=== PATIENT | female | born 1945 | race African-American/Black ===

== ENCOUNTER 2019-08-12 21:02 | Inpatient (IN) | payer MEDICARE, SELFPAY ==
--- NOTE | 2019-08-12 22:01 | RAD ---
Left femur 2 views HISTORY: Fall. Injury. FINDINGS: Comminuted predominantly oblique fracture involving the inferior margin of the lesser troch anter. Fall shaft width posterior displacement of the shaft in relation to the femoral neck. Small ossific fragment medial to the major fracture plane. Mild degenerative changes of the hip. IMPRESSION: Displaced subtrochanteric fracture left hip.
--- NOTE | 2019-08-12 22:01 | RAD ---
AP pelvis one view HISTORY: Fall. Injury. FINDINGS: Medial displacement of the subtrochanteric fracture of the left hip is apparent. There are mild degenerative changes of the hips and sacroiliac joints. Sacral alae and pelvic rings a re intact. IMPRESSION: Subtrochanteric fracture left hip.
--- NOTE | 2019-08-12 22:55 | RAD ---
Chest one view HISTORY: Preop. Hip fracture. FINDINGS: No comparison available. Cardiac silhouette is magnified by projection. Pulmonary vasculatu re is upper limits of normal. Mediastinum is midline. Mixed density predominantly lytic process of the right humeral head. The cortex favored to be intact. No other osseous lesions evident. IMPRESSION: Abnormality of the right humeral head could represent an aggressive process. Prior exams not available for direct comparison. If no prior studies are available to evaluate for stability, further imaging evaluation could be perf ormed with radionucleotide bone scan or MRI of the shoulder.
[2019-08-12 23:10] LABS: #Basophils 0.1 thou/uL (0.0-0.2); #Lymphocytes 3.8 thou/uL (1.20-3.40); #Monocytes 0.4 thou/uL (0.11-0.59); #Neutrophils 5.9 thou/uL (1.40-6.50); %Eosinophils 0.1 % (0.0-10.0); %Lymphocytes 37.5 % (21.0-51.0); %Monocytes 3.4 % (0.0-10.0); Hemoglobin 8.7 g/dL (12.0-16.0); Mean Corpuscular HGB CONC 32.9 g/dL (32.0-36.0); Mean Corpuscular Hemoglobin 23.6 pg (27.0-31.0); Mean Corpuscular Volume 71.8 fL (78.0-98.0); Mean Platelet Volume 9.7 fL (7.4-10.4); Platelet Count 145 thou/uL (130-400); RBC Distribution Width 13.3 % (11.5-14.5); Red Blood Cell (RBC) Count 3.68 mill/uL (4.20-5.40); White Blood Cell (WBC) Count 10.2 thou/uL (4.8-10.8)
[2019-08-12 23:32] LABS: ALT (SGPT) 13 U/L (8-55); AST (SGOT) 22 U/L (5-34); Albumin 3.6 g/dL (3.4-4.8); Alkaline Phosphatase 117 U/L (40-110); Anion Gap 11 mmol/L (10-20); BUN (Urea Nitrogen) 11 mg/dL (9.8-20.1); Bilirubin, Total 0.5 mg/dL (0.2-1.2); Calc. Creatinine Clearance 0 mL/min (70-130); Calcium 8.4 mg/dL (7.8-10.44); Carbon Dioxide 25 mmol/L (23-31); Chloride 107 mmol/L (98-107); Estimated GFR-MDRD 84; Globulin 2.2 g/dL (2.4-3.5); Glucose 260 mg/dL (83-110); Potassium 3.4 mmol/L (3.5-5.1); Protein, Total 5.8 g/dL (6.0-8.3); Sodium 140 mmol/L (136-145)
[2019-08-12 23:55] LABS: CKMB 7.4 ng/mL (0-6.6)
[2019-08-13] MEDS ORDERED: Ondansetron PF 4 MG/2 ML Vial IVP PRN (00:26)
[2019-08-13] MEDS ORDERED: Dextrose 50% Abboject 50 ML SYRINGE SLOW IVP PRN (00:26)
[2019-08-13] MEDS ORDERED: Dextrose 5% in Water 1,000 ML IV PRN (00:26)
[2019-08-13] MEDS ORDERED: Ondansetron ODT 4 MG TAB PO PRN (00:26)
[2019-08-13] MEDS ORDERED: Potassium Phosphate 30 MMOL in Sodium Chloride 0.9% 500 ML IVPB SCH (01:00)
[2019-08-13] MEDS ORDERED: hydrALAZINE 20 MG/ML VIAL ONE ×2 (01:07→16:04)
[2019-08-13 01:11] LABS: INR-International Normal Ratio 1.1; PTT 29.3 SEC (22.9-36.1); Prothrombin Time 14.1 SEC (12.0-14.7)
[2019-08-13] MEDS: Sodium Chloride 0.9% 1,000 ML IV SCH ×3 (01:56→16:43)
[2019-08-13 02:26] LABS: Hemoglobin A1c 7.7 % (4.0-6.0)
[2019-08-13 02:31] VITALS: BMI 34.2
[2019-08-13 02:52] LABS: Bacteria/HPF None Seen HPF (None Seen); Bilirubin Negative (Negative); Blood, Urine Negative (Negative); Clarity Clear (Clear); Glucose, Urine (Dipstick) 300 mg/dL (Negative); Leukocyte Negative Leu/uL (Negative); Nitrite Negative (Negative); Protein, Urine (Dipstick) Negative (Neg-Trace); RBC/HPF 0-3 HPF (0-3); Squamous Epithelial 0-3 HPF (0-3); Urobilinogen Normal mg/dL (Less than 2); WBC/HPF 0-3 HPF (0-3)
--- NOTE | 2019-08-13 03:14 | HP ---
This is Tatum Parra NP dictating a report for Abdulkadir Menjivar MD. REQUESTING PHYSICIAN: Dr. Hernandes. CONSULTS: Orthopedic Surgery, Dr. Melendez. HISTORY OF PRESENT ILLNESS: This is a 74-year-old female, who presented to the emergency room by EMS after the patient reports that her leg suddenly buckled and was unable to ambulate. The patient states that she was walking up one step to her garage when this suddenly happened. The patient denies hitting the floor and states she was able to grab on to something in the garage, so she did not fall. The patient denies any actual pain, but states that her left thigh felt stiff. The patient also reports having some left knee pain in June. The patient denies any medical or surgical history. The patient does not have a primary care physician and states that she rarely seeks medical care. The patient also reports injuring her right chest two months ago when she was cutting tree limbs down. The patient states that the tree limb punctured her right upper chest and the wound became larger. The patient did not seek medical care and states that she has been treating it on her own with peroxide and Betadine twice a day. The patient does report occasional foul smelling odor from the large right-sided chest and breast open wound. The patient denies any recent fever or chills. She denies any chest pain, shortness of breath or dizziness. The patient states multiple times she does not have time to be sick as she has to care for her 13-year-old grandson. The patient initially did not report this injury or wound, it was found by the nursing staff as they were obtaining her EKG. She also reports 2 months ago she started having right knee pain and has been taking ibuprofen. PAST MEDICAL HISTORY: Seasonal allergies. Heart murmur since . ALLERGIES: NO KNOWN DRUG ALLERGIES. PAST SURGICAL HISTORY: Partial hysterectomy. FAMILY HISTORY: Mom of lung cancer at the age of 59 and father of myocardial infarction at the age of 56. SOCIAL HISTORY: The patient denies tobacco use. The patient reports very occasional alcohol use. Denies any illicit drug use. MEDICATIONS: Ibuprofen. REVIEW OF SYSTEMS: A 10-point review of systems is negative unless otherwise indicated in the above HPI. OBJECTIVE: VITAL SIGNS: Pulse 88, blood pressure 165/55, respirations 20, temperature 98.5, SpO2 of 99% on room air. GENERAL: Elderly female, awake, alert, in no distress, nontoxic appearing, afebrile. Oriented to person, place, and time. HEENT: Head is atraumatic and normocephalic. Pupils are equal bilateral. Extraocular muscles intact. Mucous membranes are moist. NECK: Normal range of motion. No cervical spine tenderness. Trachea is midline. CHEST: Good inspiratory and expiratory effort. Bilateral breath sounds clear. No wheezing, rales, or rhonchi. There is an approximately 15 cm deep necrotic wound to the right upper chest and lateral right breasts that extends to the right top of the nipple and axilla with muscle involvement. Mildly foul smelling odor. CARDIAC: Regular rate, regular rhythm, 3/6 systolic murmur. No pedal edema. ABDOMEN: Soft, nontender, and nondistended. EXTREMITIES: Mild tenderness with palpation to the left hip. Distal pulses 2+ in all extremities. Movement and sensation intact in all extremities. NEUROLOGIC: No focal deficits. GCS 15. LABORATORY DATA: WBC 10.2, RBC 3.68, hemoglobin 8.7, hematocrit 26.5, platelets 145. PT 14.1, INR 1.1, APTT 29.3. Sodium 140, potassium 3.4, chloride 107, carbon dioxide 25, anion gap 11, BUN 11, creatinine 0.81, estimated GFR 84, glucose 260 , calcium 8.4, phosphorus 3.0, magnesium 2.0, AST 22, ALT 13, alkaline phos elevated at 117. CK elevated at 512, CK-MB elevated 7.4, troponin I indeterminate at 0.034. C-reactive protein elevated at 1.78. BNP 90. Serum total protein 5.8, albumin 3.6. Urinalysis pending. DIAGNOSTIC DATA: 1. Left femur x-ray, impression, displaced subtrochanteric fracture, left hip. 2. Pelvis x-ray, impression, subtrochanteric fracture, left hip. 3. Chest x-ray, impression, mixed density predominantly lytic process of the right femoral head. This could represent aggressive process. Cardiac silhouette is magnified by projection. Pulmonary vascular is upper limits of normal. Mediastinum is midline. 4. A 12-lead EKG, impression, right bundle branch block with a left axis deviation. No ST-segment or T-wave abnormalities. IMPRESSION: 1. Left subtrochanteric displaced hip fracture, likely pathologic. 2. Right large breast necrotic deep wound, suspected inflammatory breast cancer 3. Right hip femoral head lytic process. 4. Increased alkaline phosphate concerning for metastatic cancer. 5. Hypokalemia. 6. Elevated CK-MB and CPK likely due to right breast wound and muscle damage. 7. Indeterminate troponin likely due to uncontrolled hypertension. 8. Hyperglycemia. 9. Anemia likely due to chronic illness. 9. History of seasonal allergies and heart murmur since . PLAN: We will admit the patient to the surgical floor. The patient will be n.p.o. after midnight for possible surgery for repair of her left hip fracture by Dr. Melendez. The patient will be placed on maintenance IV fluids, normal saline at 120 mL an hour. Replace electrolytes. We will trend CK-MB and troponin levels. Repeat lab work in the morning. Trend Troponin. Wound Care consult to evaluate the right large chest wound. We will also obtain a culture of the wound. We will place the patient on a mild insulin sliding scale. We will likely consult Oncology and Palliative Care. We will place PT and OT consult. The plan will be discussed with the attending after this dictation. Job ID: [id number] MTDD
[2019-08-13 05:00] LABS: Hemoglobin 8.3 g/dL (12.0-16.0); Mean Corpuscular HGB CONC 32.9 g/dL (32.0-36.0); Mean Corpuscular Hemoglobin 23.8 pg (27.0-31.0); Mean Corpuscular Volume 72.3 fL (78.0-98.0); Mean Platelet Volume 9.7 fL (7.4-10.4); Platelet Count 148 thou/uL (130-400); RBC Distribution Width 13.3 % (11.5-14.5); White Blood Cell (WBC) Count 10.1 thou/uL (4.8-10.8)
[2019-08-13 05:04] LABS: Band 1 % (5-11); Eosinophils 1 % (0-10); Lymphocytes 41 % (21-51); MDiff Complete? YES; Monocytes 4 % (0-10); Neutrophil 53 % (42-75); Platelet Morphology Comment Appears Adequate
[2019-08-13] MEDS: Acetaminophen 500 MG TAB PO SCH ×4 (05:14→23:52)
[2019-08-13] MEDS: hydrALAZINE 20 MG/ML VIAL SLOW IVP PRN (05:15)
[2019-08-13 05:20] LABS: Phosphorus 4.3 mg/dL (2.3-4.7)
[2019-08-13 05:22] LABS: Anion Gap 13 mmol/L (10-20); BUN (Urea Nitrogen) 8 mg/dL (9.8-20.1); Calc. Creatinine Clearance 110 mL/min (70-130); Calcium 8.3 mg/dL (7.8-10.44); Carbon Dioxide 23 mmol/L (23-31); Chloride 109 mmol/L (98-107); Estimated GFR-MDRD Greater than 90; Glucose 163 mg/dL (83-110); Potassium 3.5 mmol/L (3.5-5.1); Sodium 141 mmol/L (136-145)
[2019-08-13] MEDS ORDERED: Labetalol HCl 100 MG/20 ML VIAL SLOW IVP PRN (07:29)
[2019-08-13] MEDS ORDERED: CEFAZOLIN 2 GM in Premix Bag 1 BAG IVPB SCH (07:30)
[2019-08-13] MEDS: Polyethylene Glycol 3350 17 GM Packet PO SCH (08:52)
[2019-08-13] MEDS: Senokot S 8.6-50 MG TAB PO SCH ×2 (08:52→20:04)
[2019-08-13] MEDS ORDERED: FLU VACC TS2019-20(65YR UP)/PF 180 MCG/0.5 ML SYRINGE IM ONE (09:00)
[2019-08-13] MEDS ORDERED: TETANUS AND DIPHTHERIA TOX/PF 0.5 ML DISP.SYRIN IM ONE (09:00)
[2019-08-13] MEDS ORDERED: Prevnar 13-Val Conj/PF 0.5 ML SYRINGE IM ONE (09:00)
[2019-08-13] MEDS: Famotidine/PF 20 mg/2ml Vial SLOW IVP SCH ×2 (10:05→20:04)
[2019-08-13] MEDS ORDERED: Amlodipine 5 MG TAB PO SCH (11:15)
--- NOTE | 2019-08-13 12:08 | PRG ---
DATE OF SERVICE: 08/13/2019 SUBJECTIVE: Ms. Sesay is doing well this morning. She was resting comfortably, visiting with family when we evaluated her. She states that she does not wish to share her diagnoses with her family at this time. However, she did voice understanding that her breast lesion is likely cancerous and is on board with a plan for today of biopsying for tissue diagnosis. She states that the lesion on her breast has been present for 4 months. Her recently from cancer. She seemed to be in denial that cancer was a potential diagnosis. OBJECTIVE: GENERAL: The patient is resting comfortably this morning. No acute distress. VITAL SIGNS: Reviewed. Patient is hypertensive with the average SBP being 170s to 180s over DBP 50s to 60s. Vital signs otherwise stable. She is afebrile. RESPIRATORY: The patient is breathing comfortably. No signs of respiratory distress. EXTREMITIES: Moves all four extremities. Discomfort with left lower extremity. LABORATORY STUDIES: This morning revealed a hemoglobin of 8.3, hematocrit 25.3, platelet count of 148, white blood cell count of 10.1, PT 14.1, INR 1.1. Basic metabolic panel overall normal. ASSESSMENT AND PLAN: 1. Left subtrochanteric displaced hip fracture: Plan today for surgical correction. 2. Right large breast necrotic wound, suspected inflammatory breast cancer: Plan is for biopsy to be performed during orthopedic surgery today. Oncology has been consulted. 3. Right hip femoral head lytic process: Likely related to inflammatory breast cancer. We will await pathology results. 4. Other diagnoses: Increased alkaline phosphatase, hypokalemia, elevated CK- MB and CPK, hyperglycemia, hypertension, anemia. Plan: Today we will start amlodipine 5mg for blood pressure. We will plan to start metformin either 48 hours postoperatively or on discharge for diabetes. Her A1c was 7.7. We will await pathology results and Oncology recommendation. Palliative Care has been consulted to discuss coping mechanisms and complex decision making along with facilitating family discussion. The patient was seen and evaluated by Dr. Quiñonez. Job ID: [id number] MTDD
[2019-08-13] MEDS ORDERED: Midazolam HCl 2 mg/2 ml Vial ONE (13:22)
[2019-08-13] MEDS ORDERED: Fentanyl 100 MCG/2 ML VIAL ONE ×3 (13:35→16:24)
[2019-08-13] MEDS ORDERED: Rocuronium Bromide 10 MG/ML (10ML VIAL) ONE (14:20)
[2019-08-13] MEDS ORDERED: PROPOFOL 200 MG/20 ML VIAL ONE (14:20)
[2019-08-13] MEDS ORDERED: Ondansetron PF 4 MG/2 ML Vial ONE (14:20)
[2019-08-13] MEDS ORDERED: Metoclopramide HCl 10 MG/2 ML VIAL ONE (14:20)
[2019-08-13] MEDS ORDERED: Lidocaine 1% PF 5 ML VIAL ONE (14:20)
[2019-08-13] MEDS ORDERED: Glycopyrrolate 0.2 MG/ML 5 ML SYRINGE ONE (14:20)
[2019-08-13] MEDS ORDERED: Promethazine HCl 25 MG/ML VIAL SLOW IVP PRN (14:25)
[2019-08-13] MEDS ORDERED: Meperidine HCl/PF 25 MG/ML VIAL SLOW IVP PRN (14:25)
[2019-08-13] MEDS ORDERED: Promethazine HCl 25 MG/ML VIAL IM PRN (14:25)
[2019-08-13] MEDS ORDERED: PACU-Morphine 4MG/ML VIAL SLOW IVP PRN (14:25)
--- NOTE | 2019-08-13 15:52 | CON ---
DATE OF CONSULTATION: REASON FOR CONSULT: Breast mass. HISTORY OF PRESENT ILLNESS: Ms. Sesay is a 74-year-old female, who presented to the emergency room via EMS yesterday for left hip pain. She states she originally injured her hip back in May. Pain was intermittent until around July 30, where she began to have difficulty ambulating. She was taking ibuprofen and heat. Yesterday after getting out of her car, her left leg buckled and she dropped to the ground. She was able to crawl into her house and called 911. In the emergency room, she had a hip and pelvis x-rays showed sub trochanter fracture of the left hip with displacement of the femur. On physical exam, in the emergency room, she was noted to have a large necrotic right breast mass. A chest x-ray performed showed destruction of her right humeral head. The patient states she injured her breast in May when she was cutting down trees, branch fell on her breast and since that time, her skin has continued to break down. She denies any mass prior to this event in May. She is unable to raise her right arm above her chest level. She has never had a mammogram. She denies any family history of breast or ovarian cancer. Her mother had lung cancer, but she was a smoker. She denies any complaints at this time other than leg pain, rates to 3/10. The patient denies any blurred vision or headaches over the last several weeks, although she does have a mild headache this morning. PAST MEDICAL HISTORY: None. PAST SURGICAL HISTORY: Partial hysterectomy. ALLERGIES: NO KNOWN DRUG ALLERGIES. HOME MEDICATIONS: Ibuprofen. FAMILY HISTORY: Mom had lung cancer from smoking. SOCIAL HISTORY: . from prostate cancer in February. No tobacco. Occasional alcohol use. REVIEW OF SYSTEMS: A 10-point review of systems is negative. PHYSICAL EXAMINATION: VITAL SIGNS: Temperature is 98.3, pulse is 88, respiratory rate 16, and BP is 185/50. She is 100% on room air. GENERAL: This is a well-developed, well-nourished female, in no acute distress. HEENT: Normocephalic and atraumatic. Pupils are equal and reactive to light. NECK: Supple. CV: Regular rate and rhythm. She got 2/6 murmur. LUNGS: Clear. ABDOMEN: Soft and nontender. Bowel sounds are positive. EXTREMITIES: No clubbing or cyanosis. SKIN: No rash. NEUROLOGIC: Nonfocal. BREASTS: She has a large right fungating mass encompassing the upper outer region of her right breast that extends into the axilla. Left, there are no masses. No axilla, lymphadenopathy. Right breast has a malodorous smell. PERTINENT LABS AND X-RAYS: Current WBCs are 10.1, hemoglobin 8.3, hematocrit 25.3, and platelet count 148,000. She got 53% neutrophils, 1% band, and 41% lymphocytes. PT is 14.1, INR is 1.1, and PTT is 29.3. Sodium is 141, potassium is 3.5, chloride is 109, CO2 is 23, BUN is 8, creatinine is 0.7, calcium is 8.3, bilirubin is 0.5, AST is 22, ALT is 13, and alkaline phosphatase is 117. CK-MB is 7.4 and troponin is 0.034. Serum total protein 5.8, albumin 3.4, and globulin 2.2. Urine is negative. ASSESSMENT: 1. Right necrotic breast mass with extension to her humeral head. 2. Left hip fracture less likely pathological. DISCUSSION: The patient is having repair of her left hip today. Biopsy will be done at that time. If it is nondiagnostic, we will have to have tissue from her right breast. The patient is requesting that no family members be informed of her clinical situation. Family was excused from the room during our conversation. She understands that this is likely metastatic breast cancer and then, she will need chemotherapy, surgery, and likely radiation. She will follow up in the outpatient setting in the next two week or so to discuss results of the biopsy and treatment options. She will also need scanning in the outpatient setting including PET. Thank you for the consult. Job ID: [id number]
--- NOTE | 2019-08-13 15:56 | RAD ---
LEFT FEMUR TWO VIEW: 08/13/19 HISTORY: ORIF. COMPARISON: Femoral radiograph prior day. FINDINGS: Spot images from the operative room were obtained. Intramedullary nail placement through the subtroch anteric fracture of the left femur. IMPRESSION: Satisfactory postoperative appearance. Fluoroscopy time: 131 seconds. POS: TPC
[2019-08-13 17:01] LABS: Hemoglobin 7.3 g/dL (12.0-16.0)
[2019-08-13] MEDS: Morphine 2 MG/ML SYRINGE SLOW IVP PRN ×2 (17:58→20:05)
[2019-08-13] MEDS: traMADol HCl 50 MG TAB PO PRN (19:05)
[2019-08-13] MEDS: CEFAZOLIN 2 GM in Premix Bag 1 BAG IVPB SCH (20:05)
[2019-08-13] MEDS ORDERED: Ferrous Sulfate 325 MG TAB PO SCH (21:30)
[2019-08-13] MEDS ORDERED: Ascorbic Acid 500 mg Chewable Tablet PO SCH (21:30)
--- NOTE | 2019-08-13 23:39 | PRG ---
DATE OF SERVICE: 08/13/2019 SUBJECTIVE: The patient was seen this evening during rounds. The patient was resting comfortably in no acute distress. The patient arouses easily and voices no complaints or concerns at this time. The patient denies any pain at this time. The patient's brother was asking about medications to prevent clots. We discussed getting her lab work in the morning and as long as her hemoglobin is stable, then will start DVT prophylaxis. The patient is tolerating a diabetic diet at this time. Urinary output is adequate. OBJECTIVE: VITAL SIGNS: Stable, afebrile. GENERAL: Elderly female, resting comfortably in bed, no acute distress. RESPIRATORY: Equal chest rise and fall, respirations are even and unlabored. EXTREMITIES: Moves all extremities, no focal deficits. ASSESSMENT: 1. Left subtrochanteric displaced hip fracture status post repair. 2. Right large breast necrotic wound, suspected inflammatory breast cancer. 3. Right humeral head lytic process. 4. Increased alkaline phosphate. 5. Hypokalemia. 6. Hyperglycemia. 7. Hypertension. 8. Anemia present on admission. PLAN: Continue supportive care. Pending breast biopsy results. Continue diabetic diet and sliding scale. Continue amlodipine for blood pressure control. We will add iron and vitamin C as the patient has anemia on admission. We will repeat hemoglobin and hematocrit in the morning. As long as hemoglobin is stable, we will start the patient on chemical DVT prophylaxis. Continue mechanical DVT prophylaxis. Job ID: [id number] MTDD
[2019-08-14] MEDS: Insulin Regular 300 UNITS/3 ML VIAL SC PRN ×3 (00:06→18:18)
[2019-08-14] MEDS: traMADol HCl 50 MG TAB PO PRN ×4 (01:07→18:18)
[2019-08-14] MEDS: CEFAZOLIN 2 GM in Premix Bag 1 BAG IVPB SCH (05:06)
[2019-08-14] MEDS: Acetaminophen 500 MG TAB PO SCH ×4 (05:07→23:29)
[2019-08-14 05:23] LABS: Anion Gap 11 mmol/L (10-20); BUN (Urea Nitrogen) 8 mg/dL (9.8-20.1); Calc. Creatinine Clearance 91 mL/min (70-130); Calcium 7.6 mg/dL (7.8-10.44); Carbon Dioxide 23 mmol/L (23-31); Chloride 106 mmol/L (98-107); Estimated GFR-MDRD 80; Glucose 177 mg/dL (83-110); Magnesium 2.1 mg/dL (1.6-2.6); Phosphorus 5.1 mg/dL (2.3-4.7); Sodium 136 mmol/L (136-145)
[2019-08-14 05:30] LABS: Anisocytosis SLIGHT = 6-15 cells (100X) (0-5/hpf); Band 3 % (5-11); Hemoglobin 7.1 g/dL (12.0-16.0); Hypochromia SLIGHT = 6-15 cells (100X) (0-5/hpf); Lymphocytes 58 % (21-51); MDiff Complete? YES; Mean Corpuscular HGB CONC 32.3 g/dL (32.0-36.0); Mean Corpuscular Hemoglobin 23.5 pg (27.0-31.0); Mean Corpuscular Volume 72.7 fL (78.0-98.0); Mean Platelet Volume 9.6 fL (7.4-10.4); Monocytes 3 % (0-10); Neutrophil 36 % (42-75); Platelet Count 191 thou/uL (130-400); RBC Distribution Width 13.7 % (11.5-14.5); Red Blood Cell (RBC) Count 3.01 mill/uL (4.20-5.40); White Blood Cell (WBC) Count 15.5 thou/uL (4.8-10.8)
[2019-08-14] MEDS ORDERED: Ferrous Sulfate 325 MG TAB PO SCH (08:00)
[2019-08-14] MEDS: Ascorbic Acid 500 mg Chewable Tablet PO SCH ×2 (08:26→21:03)
[2019-08-14] MEDS: Ferrous Sulfate 325 MG TAB PO SCH ×2 (08:26→18:18)
[2019-08-14] MEDS: Enoxaparin Sodium 40 MG/0.4 ML SYRINGE SC SCH (08:26)
[2019-08-14] MEDS: Famotidine 20 MG TAB PO SCH ×2 (08:26→21:03)
[2019-08-14] MEDS: Polyethylene Glycol 3350 17 GM Packet PO SCH (08:27)
[2019-08-14] MEDS: Senokot S 8.6-50 MG TAB PO SCH ×2 (08:27→21:03)
[2019-08-14] MEDS ORDERED: Amlodipine 5 MG TAB PO SCH (09:00)
[2019-08-14] MEDS ORDERED: Ascorbic Acid 500 mg Chewable Tablet PO SCH (09:00)
[2019-08-14] MEDS ORDERED: Lidocaine 2% w/Epinephrine 1:200K 20 ML VIAL FS SCH (13:00)
--- NOTE | 2019-08-14 14:31 | PRG ---
DATE OF SERVICE: 08/14/2019 SUBJECTIVE: The patient was seen this morning sitting up in bed with no signs of acute distress. She is postoperative day 1 after fixation of her left subtrochanteric femur fracture. She reports her pain is well controlled. She has not yet worked with Physical Therapy and she is tolerating her diet. Orthopedic Surgery has sent the bone biopsy and awaiting for that result. Dr. Hawthorne has also been consulted to complete a core biopsy of the breast tissue. Wound Care has been seeing the patient. OBJECTIVE: VITAL SIGNS: Temperature 98.0, pulse 92, respirations 16, oxygen saturation 98% on 2 L nasal cannula, and blood pressure 122/73. GENERAL: Well-appearing elderly female, sitting up in bed with no signs of acute distress. PULMONARY: Equal chest rise and fall. Clear breath sounds bilaterally. No signs of acute respiratory distress. CARDIAC: Regular rate and rhythm. No murmurs, gallops or rubs. GI: Abdomen is soft, nontender, and nondistended. EXTREMITIES: 2+ pulses in all extremities. Gross motor and sensation are intact. No significant swelling noted. SKIN: Right-sided lateral breast wound with dressing that is clean, dry, and intact. LABORATORY FINDINGS: White count 15.5, hemoglobin 7.1, hematocrit 21.9, and platelets 191. Sodium 137, potassium 4.0, chloride 106, bicarb 23, BUN 8, creatinine 0.85, glucose 177, phos 5.1, and magnesium 2.1. DIAGNOSTIC FINDINGS: There are no new diagnostic findings to report. ASSESSMENT: 1. Status post pain after walking to left hip. 2. Left subtrochanteric femur fracture, status post repair. 3. Right-sided necrotic breast wound concerning for inflammatory breast cancer. 4. Hypertension, now controlled. 5. Hyperglycemia, improved. 6. Anemia, stable. PLAN: The patient will begin to work with Physical and Occupational Therapy today. We have consulted Dr. Hawthorne to evaluate the patient's breast wound and complete a biopsy. We will follow up that result with the addition of the bone biopsy sent by Orthopedic Surgery. Heme-Onc has already been consulted and I suspect they are waiting for pathology reports before evaluating the patient. She will be placed on Lovenox today. Continue SCDs as well. This patient was seen by myself and I discussed her care with Dr. Quiñonez before this dictation. Job ID: [id number]
--- NOTE | 2019-08-14 15:51 | PDOC.PALFU ---
Palliative Care Follow-up Note Palliative Care attempted to initiate care with Ms Sesay, was in a procedure at the time. Palliative Care will follow up to provide support, assist with goals of care and complex decision making.
--- NOTE | 2019-08-14 16:17 | OP ---
DATE OF PROCEDURE: 08/14/2019 PREOPERATIVE DIAGNOSIS: Right breast mass, locally invasive inflammatory. POSTOPERATIVE DIAGNOSIS: Right breast mass, locally invasive inflammatory. PROCEDURE PERFORMED: Core needle biopsy of right breast mass. ANESTHESIA: Local. ESTIMATED BLOOD LOSS: Minimal. COMPLICATIONS: None. SPECIMEN: Three cores. DESCRIPTION OF PROCEDURE: The right open wound was prepped and draped in a sterile fashion. Local anesthetic was infiltrated superficially. Core biopsy was performed x3, placed in formalin and sent to Path. No ongoing bleeding. Job ID: [id number]
[2019-08-14] MEDS: hydrALAZINE 20 MG/ML VIAL SLOW IVP PRN (21:04)
[2019-08-14] MEDS ORDERED: Insulin Regular 300 UNITS/3 ML VIAL SC PRN (22:13)
--- NOTE | 2019-08-15 00:47 | PRG ---
DATE OF SERVICE: 08/14/2019 SUBJECTIVE: The patient was seen this evening during rounds, resting comfortably in hospital bed. The patient is postop day #1 after fixation of her left subtrochanteric femur fracture. The patient also had a breast biopsy done earlier today by Dr. Hawthorne. The patient voices no complaints or concerns at this time. The patient denies any pain. The patient continues to tolerate a regular diet. The patient continues to be reluctant to let her family know of her right breast cancer. Palliative Care has been consulted. OBJECTIVE: VITAL SIGNS: Stable, afebrile. GENERAL: Well-appearing elderly female, resting in a hospital bed, in no acute distress. PULMONARY: Equal chest rise and fall. No respiratory distress. ASSESSMENT: 1. Status post pain after walking to the left hip. 2. Left subtrochanteric femur fracture, status post repair. 3. Right-sided necrotic breast wound concerning for inflammatory breast cancer. 4. Hypertension, controlled. 5. Hyperglycemia, improving. 6. Anemia, stable. PLAN: Continue to have the patient work with Physical and Occupational Therapy. Pending breast and bone biopsy results. Continue mechanical and chemical VTE prophylaxis. Job ID: [id number]
[2019-08-15] MEDS: Acetaminophen 500 MG TAB PO SCH ×4 (05:36→22:55)
[2019-08-15] MEDS: traMADol HCl 50 MG TAB PO PRN ×2 (05:36→11:27)
[2019-08-15] MEDS: Insulin Regular 300 UNITS/3 ML VIAL SC PRN ×3 (05:38→17:14)
[2019-08-15 05:54] LABS: Anion Gap 11 mmol/L (10-20); BUN (Urea Nitrogen) 8 mg/dL (9.8-20.1); Calc. Creatinine Clearance 104 mL/min (70-130); Calcium 7.8 mg/dL (7.8-10.44); Carbon Dioxide 23 mmol/L (23-31); Chloride 101 mmol/L (98-107); Estimated GFR-MDRD Greater than 90; Glucose 196 mg/dL (83-110); Phosphorus 2.9 mg/dL (2.3-4.7); Potassium 3.8 mmol/L (3.5-5.1); Sodium 131 mmol/L (136-145)
[2019-08-15 06:32] LABS: Band 1 % (5-11); Hemoglobin 6.8 g/dL (12.0-16.0); Hypochromia SLIGHT = 6-15 cells (100X) (0-5/hpf); Lymphocytes 54 % (21-51); MDiff Complete? YES; Mean Corpuscular HGB CONC 32.9 g/dL (32.0-36.0); Mean Corpuscular Hemoglobin 23.7 pg (27.0-31.0); Mean Corpuscular Volume 72.1 fL (78.0-98.0); Mean Platelet Volume 9.6 fL (7.4-10.4); Microcytosis SLIGHT = 6-15 cells (100X) (0-5/hpf); Monocytes 2 % (0-10); Neutrophil 43 % (42-75); Platelet Count 211 thou/uL (130-400); RBC Distribution Width 13.9 % (11.5-14.5); Red Blood Cell (RBC) Count 2.85 mill/uL (4.20-5.40)
[2019-08-15] MEDS: Senokot S 8.6-50 MG TAB PO SCH ×2 (08:34→20:11)
[2019-08-15] MEDS: Amlodipine 5 MG TAB PO SCH (08:34)
[2019-08-15] MEDS: Ascorbic Acid 500 mg Chewable Tablet PO SCH ×2 (08:35→20:11)
[2019-08-15] MEDS: Enoxaparin Sodium 40 MG/0.4 ML SYRINGE SC SCH (08:35)
[2019-08-15] MEDS: Famotidine 20 MG TAB PO SCH ×2 (08:35→20:11)
[2019-08-15] MEDS: Ferrous Sulfate 325 MG TAB PO SCH ×2 (08:35→17:12)
[2019-08-15] MEDS: Polyethylene Glycol 3350 17 GM Packet PO SCH (08:36)
--- NOTE | 2019-08-15 12:00 | EKG ---
Test Reason : Blood Pressure : / mmHG Vent. Rate : 096 BPM Atrial Rate : 096 BPM P-R Int : 184 ms QRS Dur : 110 ms QT Int : 382 ms P-R-T Axes : 040 -48 019 degrees QTc Int : 482 ms Normal sinus rhythm Left axis deviation Right bundle branch block Abnormal ECG Confirmed by RAY RODRIGUEZ, HANNY ([id number]), editor managing director RENETTA ANGELES ([id number]) on 08/15/2019 12:00:01 PM Referred By: Confirmed By:HANNY BELL MD
[2019-08-15] MEDS: Vancomycin 1.5 GRAM/300 ML BAG 1.5 GM in Premix Bag 1 BAG IVPB SCH (13:41)
--- NOTE | 2019-08-15 14:13 | PRG ---
DATE OF SERVICE: 08/15/2019 SUBJECTIVE: The patient was seen this morning sitting up in bed with no signs of acute distress. She reported her pain is well controlled and she is tolerating her diabetic diet. This morning, the patient with new mild tachycardia with heart rate in the 100s. Otherwise, blood pressures have been stable. Urinary output is adequate. OBJECTIVE: VITAL SIGNS: Temperature 98.5, pulse 107, respirations 18, oxygen saturation 95% on room air, blood pressure 105/62. GENERAL: Well-appearing elderly female, sitting up in bed with no signs of acute distress. PULMONARY: Equal chest rise and fall. Clear breath sounds bilaterally. No signs of acute respiratory distress. CARDIAC: Regular rate and rhythm. No murmurs, gallops, or rubs. GI: Abdomen is soft, nontender, nondistended. EXTREMITIES: 2+ pulses in all extremities. Gross motor and sensation are intact. BREASTS: Right breast wound has bandage in place and will be changed by Wound Care today. LABORATORY FINDINGS: White count 21.0, hemoglobin 6.8, hematocrit 20.5, platelets 211. Sodium 131, potassium 3.8, chloride 101, carbon dioxide 25, BUN 8, creatinine 0.74, glucose 196, phosphorus 2.9, magnesium 2.0. DIAGNOSTIC FINDINGS: There are no new diagnostic findings to report. ASSESSMENT: 1. Status post pain with ambulation. 2. Left subtrochanteric femur fracture, status post repair. 3. Large breast wound to right lateral breast, status post biopsy. 4. Uncontrolled hypertension, improving. 5. Hyperglycemia, persistent. 6. Acute blood loss anemia, worsening. 7. Acute hyponatremia and hypophosphatemia. 8. Leukocytosis. PLAN: Continue current diet and pain regimen. Continue amlodipine at current dose. We will add metformin 500 b.i.d. as she is not expected to go back to the OR and during this hospital admission. We will free water restrict the patient to 1.5 L for her hyponatremia. She will be started on vanc and Zosyn. Culture for her leukocytosis. Cultures are pending of the right-sided breast wound. We will follow up culture and sensitivity and deescalate antibiotics when resulted. She is receiving 1 unit of packed red blood cells today for hemoglobin of 6.8 with tachycardia. The patient continues to work with Physical and Occupational Therapy and is pending placement at acute rehab facility. The patient will follow up with Heme-Onc as well as Dr. Hawthorne. This patient was discussed with Dr. Quiñonez before this dictation. Job ID: [id number]
[2019-08-15] MEDS: Piperacillin/Tazobactam 3.375 GM in Sodium Chloride 0.9% 100 ML IVPB SCH ×2 (17:12→22:56)
[2019-08-15] MEDS: metFORMIN 500 MG TAB PO SCH (17:12)
[2019-08-16] MEDS: Vancomycin 1.5 GRAM/300 ML BAG 1.5 GM in Premix Bag 1 BAG IVPB SCH ×2 (01:35→13:50)
--- NOTE | 2019-08-16 03:16 | PRG ---
DATE OF SERVICE: 08/15/2019 SUBJECTIVE: The patient was seen this evening during rounds on the surgical floor, resting comfortably, no acute distress. The patient continues to tolerate a regular diet. Nursing staff state that the patient finally told her brother about her breast wound and inflammatory breast cancer. The patient did receive 1 unit of packed red blood cells this morning as her hemoglobin had dropped. OBJECTIVE: VITAL SIGNS: Stable, afebrile. GENITOURINARY: Adequate urinary output. PLAN: 1. Continue supportive care. 2. Repeat hemoglobin and hematocrit in the morning. 3. Continue IV antibiotics. 4. Breast and bone biopsies are pending. 5. The patient has been accepted to inpatient rehab pending bed availability. Job ID: [id number]
[2019-08-16 05:18] LABS: Anion Gap 10 mmol/L (10-20); BUN (Urea Nitrogen) 6 mg/dL (9.8-20.1); Calc. Creatinine Clearance 119 mL/min (70-130); Calcium 7.9 mg/dL (7.8-10.44); Carbon Dioxide 23 mmol/L (23-31); Chloride 104 mmol/L (98-107); Estimated GFR-MDRD Greater than 90; Glucose 191 mg/dL (83-110); Phosphorus 2.6 mg/dL (2.3-4.7); Potassium 3.2 mmol/L (3.5-5.1); Sodium 134 mmol/L (136-145)
[2019-08-16 05:22] LABS: Band 1 % (5-11); Lymphocytes 50 % (21-51); MDiff Complete? YES; Mean Corpuscular HGB CONC 33.6 g/dL (32.0-36.0); Mean Corpuscular Hemoglobin 25.5 pg (27.0-31.0); Mean Platelet Volume 9.1 fL (7.4-10.4); Microcytosis SLIGHT = 6-15 cells (100X) (0-5/hpf); Monocytes 4 % (0-10); Neutrophil 45 % (42-75); Platelet Count 192 thou/uL (130-400); Platelet Morphology Comment Appears Adequate; RBC Distribution Width 15.4 % (11.5-14.5); Red Blood Cell (RBC) Count 2.73 mill/uL (4.20-5.40); White Blood Cell (WBC) Count 18.5 thou/uL (4.8-10.8)
[2019-08-16] MEDS: Acetaminophen 500 MG TAB PO SCH ×3 (05:45→17:05)
[2019-08-16] MEDS: Piperacillin/Tazobactam 3.375 GM in Sodium Chloride 0.9% 100 ML IVPB SCH ×2 (05:46→12:09)
[2019-08-16] MEDS: Insulin Regular 300 UNITS/3 ML VIAL SC PRN ×2 (06:32→12:09)
[2019-08-16] MEDS: Famotidine 20 MG TAB PO SCH ×2 (08:03→20:15)
[2019-08-16] MEDS: Ascorbic Acid 500 mg Chewable Tablet PO SCH ×2 (08:03→20:15)
[2019-08-16] MEDS: Amlodipine 5 MG TAB PO SCH (08:03)
[2019-08-16] MEDS: Ferrous Sulfate 325 MG TAB PO SCH ×2 (08:03→17:05)
[2019-08-16] MEDS: metFORMIN 500 MG TAB PO SCH ×2 (08:04→17:06)
[2019-08-16] MEDS: Polyethylene Glycol 3350 17 GM Packet PO SCH (08:04)
[2019-08-16] MEDS: Senokot S 8.6-50 MG TAB PO SCH ×2 (08:04→20:15)
[2019-08-16] MEDS: Enoxaparin Sodium 40 MG/0.4 ML SYRINGE SC SCH (08:04)
[2019-08-16] MEDS ORDERED: Potassium Phosphate 30 MMOL in Sodium Chloride 0.9% 250 ML 250 ML IVPB SCH (08:15)
[2019-08-16] MEDS: traMADol HCl 50 MG TAB PO PRN ×2 (10:49→17:05)
--- NOTE | 2019-08-16 15:21 | PRG ---
DATE OF SERVICE: 08/16/2019 SUBJECTIVE: The patient was seen this morning sitting up on bedside commode. She reported no acute distress. She slept well overnight and pain is well controlled. She is tolerating a diabetic diet. She had no questions at the time of my evaluation. OBJECTIVE: VITAL SIGNS: Temperature 98.9, pulse 97, respirations 12, oxygen saturation 98% on room air, and blood pressure 155/76. GENERAL: A well-appearing elderly female, sitting up with no signs of acute distress. PULMONARY: Equal chest rise and fall. Clear breath sounds bilaterally. No signs of acute respiratory distress. BREASTS: Right-sided breast wound is with dressing that is clean, dry, and intact. ABDOMEN: Soft, nontender, and nondistended. EXTREMITIES: 2+ pulses in all extremities. Gross motor and sensation are intact. No significant swelling noted. NEUROLOGIC: GCS is 15. LABORATORY FINDINGS: White count 18.5, hemoglobin 7.0, hematocrit 20.7, and platelets 192. Sodium 134, potassium 3.2, chloride 104, bicarb 23, BUN 9, creatinine 0.65, and glucose 191. Phosphorus 2.6. Magnesium 2.0. DIAGNOSTIC FINDINGS: There are no new diagnostic findings to report. ASSESSMENT: 1. Status post pain while ambulating to the left hip. 2. Left subtrochanteric femur fracture. 3. Large necrotic wound to the patient's right lateral breast. 4. New diagnoses of hypertension and diabetes. 5. Hyponatremia, improving. 6. Acute blood loss anemia, stable. 7. Hypokalemia and hypophosphatemia. PLAN: Continue current diet and pain regimen. Continue physical and occupational therapy. Continue 1.5 L fluid restriction. Continue metformin. We will discontinue vancomycin as the patient's cultures do not show MRSA. We will continue Zosyn. We will also replace potassium and phosphorus. The patient is pending discharge to acute rehab facility. The patient was discussed with Dr. Quiñonez before this dictation. Job ID: [id number]
[2019-08-16] MEDS: Sulfameth/Trimethoprim DS 800-160mg TAB PO SCH (20:14)
[2019-08-17] MEDS: Acetaminophen 500 MG TAB PO SCH ×5 (00:35→23:31)
--- NOTE | 2019-08-17 00:47 | PRG ---
DATE OF SERVICE: 08/17/2019 The was seen resting comfortably during the evening rounds. The patient remains on the surgical floor. The patient is awake, alert, in no distress. The patient denies any pain at this time. The patient continues to tolerate a diabetic diet. Next objective vital signs stable, afebrile. GENERAL: Well-appearing elderly female, sitting up in hospital bed, in no acute distress next pulmonary equal chest rise and fall, breath sounds clear. EXTREMITIES: Moves all extremities, positive motor and sensation are intact, right upper extremity with limited range of motion. NEURO: GCS 15. ASSESSMENT: 1. status post pain while ambulating correction status post pain the left hip while ambulating. 2. left trochanteric femur fracture status post repair. 3. Large necrotic wound the patient's right lateral breast. 4. New diagnosis of hypertension and diabetes. 5. hyponatremia, improving. 6. Blood loss anemia stable. 7. Hypokalemia and hypophosphatemia. PLAN: Continue supportive care, current diabetic diet and pain regimen. Continue physical and occupational therapy. The patient has been approved for inpatient rehab pending bed availability. Job ID: [id number] [facility]
[2019-08-17 05:37] LABS: Anion Gap 11 mmol/L (10-20); BUN (Urea Nitrogen) 4 mg/dL (9.8-20.1); Calc. Creatinine Clearance 127 mL/min (70-130); Calcium 7.8 mg/dL (7.8-10.44); Carbon Dioxide 24 mmol/L (23-31); Chloride 104 mmol/L (98-107); Estimated GFR-MDRD Greater than 90; Glucose 156 mg/dL (83-110); Phosphorus 2.7 mg/dL (2.3-4.7); Potassium 3.2 mmol/L (3.5-5.1); Sodium 136 mmol/L (136-145)
[2019-08-17 05:45] LABS: Eosinophils 1 % (0-10); Hemoglobin 6.9 g/dL (12.0-16.0); Lymphocytes 57 % (21-51); MDiff Complete? YES; Mean Corpuscular HGB CONC 32.1 g/dL (32.0-36.0); Mean Corpuscular Volume 74.8 fL (78.0-98.0); Mean Platelet Volume 8.9 fL (7.4-10.4); Microcytosis SLIGHT = 6-15 cells (100X) (0-5/hpf); Monocytes 2 % (0-10); Neutrophil 40 % (42-75); Platelet Count 213 thou/uL (130-400); Polychromasia SLIGHT = 2-3 cells (100X) (0-2/hpf); RBC Distribution Width 15.5 % (11.5-14.5); Red Blood Cell (RBC) Count 2.86 mill/uL (4.20-5.40); White Blood Cell (WBC) Count 16.1 thou/uL (4.8-10.8)
[2019-08-17] MEDS: Insulin Regular 300 UNITS/3 ML VIAL SC PRN ×3 (06:18→17:39)
[2019-08-17] MEDS ORDERED: Potassium Phosphate 30 MMOL in Sodium Chloride 0.9% 250 ML 250 ML IVPB SCH (06:45)
[2019-08-17] MEDS: Ascorbic Acid 500 mg Chewable Tablet PO SCH ×2 (08:01→17:39)
[2019-08-17] MEDS: metFORMIN 500 MG TAB PO SCH ×2 (08:01→17:38)
[2019-08-17] MEDS: Sulfameth/Trimethoprim DS 800-160mg TAB PO SCH ×2 (08:01→19:56)
[2019-08-17] MEDS: Ferrous Sulfate 325 MG TAB PO SCH ×2 (08:01→17:38)
[2019-08-17] MEDS: Famotidine 20 MG TAB PO SCH ×2 (08:01→19:56)
[2019-08-17] MEDS: Polyethylene Glycol 3350 17 GM Packet PO SCH (08:02)
[2019-08-17] MEDS: Senokot S 8.6-50 MG TAB PO SCH ×2 (08:02→19:56)
[2019-08-17] MEDS: Amlodipine 5 MG TAB PO SCH (08:02)
[2019-08-17] MEDS: Enoxaparin Sodium 40 MG/0.4 ML SYRINGE SC SCH (08:06)
[2019-08-17] MEDS: traMADol HCl 50 MG TAB PO PRN (09:10)
--- NOTE | 2019-08-17 12:06 | PDOC.PALCO ---
Palliative Care Consult - Consult Details Requesting Physician: Dr Souza Reason for Consult: assistance with communication prognosis/disease, complex decision-making Family Members Present: None - Pertinent HPI Ms Sesay is a 74 year old female who reports in good health until she sustained an injury at home going to her garage, suffering a hip fracture. She resided at a primary residence with her grandson. She was transferred to the emergency room via ems secondary to not being able to ambulate, the nurse went to obtain an EKG when the nurse identified a large fungating breast wound to the right sided of her chest. Patient had not reported this in the initial history she provided. Patient states she was trimming trees this summer with her grandson and the chainsaw nicked her breast, wound has not healed and progressively gotten worse. Patient had her left hip repaired, pathology report pending on her breast. Wound care currently managing her right chest wall/breast wound. Has no primary provider as she reports she has not needed one. Confirmed that she has had knee pain the month prior to the fracture. - Pertinent PMH Heart murmur, allergies - Social History Smoking Status: Never smoker Smoking: no tobacco exposure Alcohol Use: none Drug Use History: none Living Situation: dependent child, other - Medications MAR Reviewed: Yes - Allergies Allergies/Adverse Reactions: Allergies Allergy/AdvReac Type Severity Reaction Status Date / Time No Known Drug Allergies Allergy Verified 08/13/19 02:12 - Subjective Patient denies pain at time of assessment, reports that she takes her pain medication prior to wound care. - ROS Constitutional: alert Eyes: other (negative fo rvisual disturbamces) ENT: other (denies difficulity swallowing, congestion) Respiratory: other (negative for cough, shortness of breath) Cardiology: other (negative for chest pain, palpitation) Gastrointestinal: other (negative for constipation, does complain of mild gas) Genitourinary: other (denies frequency, dysuria) Musculoskeletal: other (negative to pain to lower extremities) Neurological: other (negative for numbness or headache) Skin: other (wound to right chest wall/breast) Psychological: other - Objective Vital Signs: Vital Signs - Most Recent Temp Pulse Resp BP Pulse Ox 98.1 F 90 14 173/76 H 100 08/17/19 11:42 08/17/19 11:42 08/17/19 11:42 08/17/19 11:42 08/17/19 11:42 - Advance Directives Medical Power of Tape Edge Machine Operator: NONE - Physical Exam Constitutional: NAD HEENT: EOMI, moist MMs, PERRLA, sclera anicteric Respiratory: clear to auscultation bilateral, no wheezing Cardiovascular: RRR Gastrointestinal: continent, soft, non-tender, positive bowel sounds Genitourinary: continent Musculoskeletal: no cyanosis, no clubbing Neurology: moves all 4 limbs Deviation from normal: mildly decreased ROM to right arm Skin: cap refill <2 seconds, normal turgor Deviation from normal: wound to right chest/breast Psychiatric: A&O x 3, normal affect - Problem List (1) Breast mass, right Code(s): N63.10 - UNSPECIFIED LUMP IN THE RIGHT BREAST, UNSPECIFIED QUADRANT Current Visit: Yes Status: Acute (2) Palliative care encounter Code(s): Z51.5 - ENCOUNTER FOR PALLIATIVE CARE Current Visit: Yes Status: Acute (3) Open wound of right female breast Code(s): S21.001A - UNSPECIFIED OPEN WOUND OF RIGHT BREAST, INITIAL ENCOUNTER Current Visit: Yes Status: Acute (4) Hip fracture, left Code(s): S72.002A - FRACTURE OF UNSP PART OF NECK OF LEFT FEMUR, INIT Current Visit: Yes Status: Acute - Plan/Recommendations Plan:Life review with patient, her grandson is actually a "Godson" that she has raised since he was an , no legal adoption. She is not and has never had children. She is the primary caregiver for Cedric her grandson. He is in the 7th grade, in GT classes, percussion in the band. The most important aspect of her life is her ellen and her grandson. Discussed "Hoping for the best and planning for the worst" to allow her to respond as her health unfolds and not have to react in regards to decisions. Ms Sesay does not have a MPOA and we visited at length in relation to her considering appointing one since she does not have children and is not . Goal: *Continue to care for Cedric and see him graduate *Aggressive measures for healthcare *Rehab at discharge to gain strength s/p left hip repair *Follow up at Oncology Clinic *Revisit MPOA and attempt to designate She has not told her grandson about the breast mass and suspected Cancer. Encourage to discuss with him, offered support when she discusses with him. Lorenzo Arriaga RN and Dez Morales sheet metal worker helper to also follow. [90] minutes spent on this encounter with >50% of the time in counseling and coordination of care. Thank you for this very appropriate consult.
--- NOTE | 2019-08-17 13:28 | PRG ---
DATE OF SERVICE: 08/17/2019 SUBJECTIVE: The patient was seen this morning sitting up in bed with no signs of acute distress. Reported her pain is well controlled and tolerating her diet. Has no complaints at the time of my evaluation. States she slept well overnight. OBJECTIVE: VITAL SIGNS: Temperature 98.4, pulse 89, respirations 14, oxygen saturation 99% on room air, blood pressure 177/71. GENERAL: Well-appearing elderly female, sitting up in bed with no signs of acute distress pulmonary equal. CHEST: Equal rise and fall clear breath sounds bilaterally. No signs of acute respiratory distress. CARDIAC: Regular rate and rhythm. No murmurs, gallops, or rubs. GI: Abdomen is soft, nontender. EXTREMITIES: 2+ pulses in all extremities. Gross motor and sensation intact. No significant swelling noted. NEUROLOGIC: GCS is 15. LABORATORY FINDINGS: White count 16.1, hemoglobin 7.0, hematocrit 21.4, platelets are 213. Sodium 136, potassium 3.2, chloride 104, bicarb 24, BUN 4, creatinine 0.61, glucose 156, phosphorus 2.7 magnesium 2.0. DIAGNOSTIC FINDINGS: There are no new diagnostic findings to report. ASSESSMENT: 1. Status post leg pain with ambulation. 2. Left subtrochanteric femur fracture, status post repair. 3. Large right-sided necrotic breast wound, likely inflammatory breast cancer. 4. Hypertension and diabetes, new diagnosis. 5. Hyponatremia, resolved. 6. Hypokalemia. 7. Acute blood loss anemia, stable. PLAN: Continue current diet and pain regimen. Continue physical and occupational therapy. Sensitivities grew back for the patient's wound on her right breast, it is positive for Pseudomonas and Staph aureus. She will have Bactrim for total of 10 days. Continue free water restriction. Continue iron and vitamin C, and continue to monitor vitals and blood work. Did include increase amlodipine to 10 mg daily today from five for better blood pressure control. We will follow up those results. The patient is ready for discharge at this time. She has been approved by insurance and rehab and is waiting bed availability. We will discharge her as soon as if bed is available. This patient was seen and examined by Dr. Quiñonez, this morning during rounds. Job ID: [id number]
--- NOTE | 2019-08-17 23:45 | PRG ---
DATE OF SERVICE: 08/17/2019 SUBJECTIVE: The patient was seen on the surgical floor during the evening rounds. The patient was up ambulating to the restroom using a walker. The patient's pain is controlled at this time. The patient voices no complaints or concerns. OBJECTIVE: VITAL SIGNS: Stable, afebrile. PLAN: Continue supportive care. Continue physical and occupational therapy. Continue Bactrim for 10 days. Continue free water restriction. The patient is ready for discharge. The patient is pending bed availability at inpatient rehab. Job ID: [id number]
[2019-08-18] MEDS: Acetaminophen 500 MG TAB PO SCH ×3 (06:10→17:48)
[2019-08-18] MEDS: Insulin Regular 300 UNITS/3 ML VIAL SC PRN ×2 (06:10→11:49)
--- NOTE | 2019-08-18 07:44 | HP ---
ADDENDUM: The number 3 impression should read right humeral head lytic process, not right hip femoral head lytic process. Job ID: [id number]
[2019-08-18] MEDS: traMADol HCl 50 MG TAB PO PRN ×2 (08:56→17:52)
[2019-08-18] MEDS: Enoxaparin Sodium 40 MG/0.4 ML SYRINGE SC SCH (09:34)
[2019-08-18] MEDS: Amlodipine 5 MG TAB PO SCH (09:34)
[2019-08-18] MEDS: Senokot S 8.6-50 MG TAB PO SCH (09:35)
[2019-08-18] MEDS: Ferrous Sulfate 325 MG TAB PO SCH ×2 (09:35→17:48)
[2019-08-18] MEDS: metFORMIN 500 MG TAB PO SCH ×2 (09:35→17:48)
[2019-08-18] MEDS: Sulfameth/Trimethoprim DS 800-160mg TAB PO SCH (09:35)
[2019-08-18] MEDS: Ascorbic Acid 500 mg Chewable Tablet PO SCH ×2 (09:35→17:49)
[2019-08-18] MEDS: Polyethylene Glycol 3350 17 GM Packet PO SCH (09:35)
[2019-08-18] MEDS: Famotidine 20 MG TAB PO SCH (09:38)
--- NOTE | 2019-08-18 12:05 | OP ---
DATE OF PROCEDURE: 08/13/2019 PROCEDURES PERFORMED: 1. Left femur biopsy of tumor. 2. Intramedullary nail of left femur subtrochanteric fracture. PREOPERATIVE DIAGNOSIS: Left femur subtrochanteric pathologic fracture. POSTOPERATIVE DIAGNOSIS: Left femur subtrochanteric pathologic fracture. COMPLICATIONS: None. ESTIMATED BLOOD LOSS: 600 mL. EARLY INTERVENTION SCHOOL PSYCHOLOGIST: Ishan Roberts PA-C IMPLANTS: Synthes 400 mm x 11 mm nail with helical blade. INDICATIONS: Ms. Sesay is a 74-year-old female, who has fractured her femur. She was found to have a pathologic fracture of the femur with suspected metastatic cancer. She also has a large lesion in her right proximal humerus as well as a large chest wall or breast mass. The patient presented with these findings. We have indicated her for open biopsy of the left femur as well as intramedullary nail fixation to restore the ability to mobilize and provide pain relief. Risks have been reviewed. She has a high risk of complication given her apparent presentation of metastatic cancer. DESCRIPTION OF PROCEDURE: Ms. Sesay was identified in the preoperative holding area. Her correct extremity was marked. She was carried to the operating room. She was positioned supine. General anesthesia was induced. A multidisciplinary time-out was performed. The left lower extremity was prepped and draped in sterile fashion. We began the procedure with an incision centered over the fracture. We dissected down through the subcutaneous tissues to the fascia, which was opened. We then explored the underlying deep tissues. We encountered the fracture. There was a large amount of irregular-appearing tissue. We biopsied this with a rongeur as well as a curette. We removed the tissue from the canal of the bone and send this to pathology. At this point, we thoroughly irrigated with copious lavage. We then obtained hemostasis. Next, we made extension of our incision proximally. We then inserted our guidewire at the tip of the trochanter. We opened the proximal femur with our reamer. We then inserted our ball-tipped guidewire across the fracture distally. We took x-ray images confirming this. We then proceeded to ream the wire. We reamed from an 8.5 mm reamer to a 12 mm reamer. We then impacted an 11-mm trochanteric nail. We placed a helical blade in the centered position of the femoral head followed by distal Crosslock screw. We closed all wounds after thorough irrigation. We closed appropriately in layers starting with the fascia. After taking final images, the patient was taken to the recovery room in good condition without complication. Job ID: [id number]
[2019-08-18 15:14] VITALS: TEMP 98.4
--- NOTE | 2019-08-18 15:42 | PDOC.MOPN ---
Interval History: walking with PT, await rehab bed - Vital Signs Vital Signs: Vital Signs (12 hours) Temp Pulse Resp BP BP Pulse Ox 08/18/19 15:13 98.4 F 89 18 179/67 H 99 08/18/19 11:22 98.7 F 83 18 133/63 94 L 08/18/19 09:34 92 153/70 H 08/18/19 08:00 98.2 F 90 18 154/53 H 98 Weight Admit Weight 212 lb Weight 212 lb - Physical Exam General: Alert, Oriented x3, No acute distress HEENT: Atraumatic, PERRLA, EOMI, Mucous membr. moist/pink Lungs: Clear to auscultation, Normal air movement Cardiovascular: Regular rate, Normal S1, Normal S2, No murmurs, Gallops, Rubs Abdomen: Normal bowel sounds, Soft, No tenderness, No hepatospenomegaly, No masses Extremities: Other Skin: No rashes, No breakdown, No significant lesion Neurological: Normal gait, Normal speech, Strength at 5/5 X4 ext, Normal tone, Sensation intact, Cranial nerves 3-12 NL, Reflexes 2+ Psych/Mental Status: Mental status NL, Mood NL - Labs Result Diagrams: 08/17/19 07:49 08/17/19 04:52 Lab results: Laboratory Results - last 24 hr 08/18/19 11:20: POC Glucose 157 H 08/18/19 05:21: POC Glucose 153 H 08/17/19 21:21: POC Glucose 145 H 08/17/19 17:20: POC Glucose 152 H Status: lab reviewed by me A/P - Problem (1) Metastatic breast cancer Current Visit: Yes Code(s): C50.919 - MALIGNANT NEOPLASM OF UNSP SITE OF UNSPECIFIED FEMALE BREAST Status: Acute - Plan Plan: Path on bone shows HR + disease Breast shows invasive ductal carcinoma, HR pending will start anastrazole to rehab when bed available Follow-up Dr. Sierra 08/31/19 at 10:45
[2019-08-18 18:30] VITALS: BP 155/60
[2019-08-19] MEDS ORDERED: Anastrozole 1 MG TAB PO SCH (09:00)
--- NOTE | 2019-08-19 15:21 | DIS ---
DATE OF ADMISSION: 08/13/2019 DATE OF DISCHARGE: 08/18/2019 ADMISSION DIAGNOSES: 1. Status post left hip pain with ambulation. 2. Pathological left hip fracture. 3. Large right-sided necrotic breast cancer. 4. History of hypertension, diabetes, acute blood loss anemia. DISCHARGE DIAGNOSES: 1. Pathological left hip fracture. 2. Large right-sided necrotic breast cancer, metastatic, stage IV. 3. Hypertension and diabetes, newly diagnosed, stable. 4. Acute blood loss anemia, stable. CONSULTING PHYSICIAN: Dr. Bud Melendez. PROCEDURE: Left chest biopsy, left hip biopsy, left femur biopsy of tumor, and intramedullary nail of left femur subtrochanteric fracture. HOSPITAL COURSE: Ms. Sesay is a 74-year-old female, with pathological left hip fracture. The patient was found to have large right-sided necrosis of breast wound, nonhealing and pathology is ductal breast cancer, which metastasized to left hip pathological fracture. The patient underwent biopsy of the right side breast, left femur biopsy, and the patient also has intramedullary nail for left hip fracture to reduce pain and restore immobilization. The patient tolerated with procedure well. The patient reports pain is well controlled. She tolerated with her regular diet and her vital signs stable. The patient rehabilitation facility for physical therapy and occupational therapy to restore function of left hip fracture. However, the patient will need to follow up with PCP and Oncology for breast cancer after discharge from rehabilitation facility. PHYSICAL EXAMINATION: GENERAL: The patient lying down in bed comfortable with no acute respiratory distress. GCS 15. VITAL SIGNS: Temperature is 98.7, heart rate 83, respiratory rate 18, O2 saturation 94% on room air, and blood pressure 133/63. LUNGS: Clear bilaterally. HEART: Regular rate and rhythm. ABDOMEN: Soft, nondistended. EXTREMITIES: Neurovascularly intact x4. Postop dressing of the left hip is dry, clean, intact. Right chest wound is stable. DISCHARGE DISPOSITION: Rehabilitation facility. DISCHARGE CONDITION: Poor. DISCHARGE INSTRUCTIONS: The patient is to take medication as directed. The patient is to work with PT/OT. The patient is to see her primary doctor and Oncology doctor after discharge from rehabilitation facility for further workup of breast cancer and metastases. DISCHARGE MEDICATIONS: 1. Tylenol. 2. Amlodipine. 3. Vitamin C. 4. Lovenox. 5. Famotidine. 6. Ferrous sulfate. 7. Hydralazine. 8. DuoNeb. 9. Labetalol. 10. Metformin. 11. Zofran. 12. MiraLAX. 13. Senokot. 14. Tramadol. Job ID: [id number]
== END 2019-08-18 19:20 | DRG 478 ==
LOC: ERS 21:02 → SURG A 08-13 01:13
PROVIDERS: ADMIT Specialist; ATTEND Specialist
PROC: 0QB70ZX Excision of Left Upper Femur, Open Approach, Diagnostic (ICD-10-PCS; principal; 2019-08-13)
PROC: 0QS706Z Reposition Left Upper Femur with Intramedullary Internal Fixation Device, Open Approach (ICD-10-PCS; 2019-08-13)
PROC: 0HBT3ZX Excision of Right Breast, Percutaneous Approach, Diagnostic (ICD-10-PCS; 2019-08-14)
DX: M84.559A Pathological fracture in neoplastic disease, hip, unspecified, initial encounter for fracture (principal); D62 Acute posthemorrhagic anemia; C79.51 Secondary malignant neoplasm of bone; E87.1 Hypo-osmolality and hyponatremia; C50.911 Malignant neoplasm of unspecified site of right female breast; I10 Essential (primary) hypertension; E87.6 Hypokalemia; E11.65 Type 2 diabetes mellitus with hyperglycemia; Z51.5 Encounter for palliative care; E83.39 Other disorders of phosphorus metabolism; W18.30XA Fall on same level, unspecified, initial encounter; Y93.89 Activity, other specified; Y92.89 Other specified places as the place of occurrence of the external cause; Z91.09 Other allergy status, other than to drugs and biological substances; Z90.711 Acquired absence of uterus with remaining cervical stump
CPT/HCPCS: 36415; 36416; 36430; 71045; 72170; 76000; 80048; 80053; 81001; 82550; 82553; 83036; 83735; 83880; 84100; 84484; 85007; 85025; 85027; 85610; 85730; 86140; 86850; 86900; 86901; 87070; 87077; 87186; 87205; 88305; 88307; 88311; 88341; 88342; 88361; 93005; 96374; C1713; C1769; G0390; J0360; J0690; J1650; J1815; J2001; J2250; J2270; J2405; J2543; J2704; J2765; J3010; J3490; J7050; P9016; S0028

== ENCOUNTER 2019-09-08 09:39 | Outpatient (CLI) | payer MEDICARE ==
--- NOTE | 2019-09-08 13:49 | PET ---
PET CT: HISTORY: 74-year-old female with invasive moderately differentiated ductal carcinoma (Grade II) of the upper o uter quadrant of the right breast, diagnosed on recent biopsy of 08/14/2019. Exam requested for initi al staging. TECHNIQUE: PET scanning with CT attenuation correction was performed from the base of the brain through the prox imal thighs following the intravenous administration of 12 mCi F18-FDG in the right antecubital fossa . COMPARISON: None. CORRELATION: Portable chest radiograph of 08/12/2019. FINDINGS: There is hypermetabolic activity in the right axillary lymph nodes with a maximum SUV of 4.2. No brayan l hypermetabolism is noted in the neck, chest, left axilla, abdomen, or pelvis. No hypermetabolic pulmonary nodules, liver, or adrenal lesions are seen. There is a lytic lesion in the right humeral head with peripherally increased FDG localization demons trating SUV of 3.9. There is physiologic activity in the GI and tracts, and the visualized portions of the brain. CT scan used for attenuation correction demonstrates multiple small lung nodules measuring up to 6.0 mm which are too small for resolution by PET. No pleural or pericardial effusions are seen. The splee n is enlarged measuring 15 cm in AP dimension. IMPRESSION: 1. Findings are consistent with right axillary lymph nik and bony metastases (right humeral head). 2. Probable lung metastasis. Follow-up CT scan of chest is recommended in 3 months. 3. Splenomegaly. POS: [facility]
== END 2019-09-08 09:40 | disposition home or self-care (01) ==
LOC: PET 09:39
PROVIDERS: ATTEND Internal Medicine Hematology & Oncology
DX: C50.919 Malignant neoplasm of unspecified site of unspecified female breast (principal); C79.51 Secondary malignant neoplasm of bone; R16.1 Splenomegaly, not elsewhere classified
CPT/HCPCS: 78815; A9552

== ENCOUNTER 2019-09-10 08:25 | Outpatient (CLI) | payer MEDICARE ==
--- NOTE | 2019-09-10 09:40 | MRI ---
MRI brain with and without contrast: DATE: 09/10/2019 HISTORY: 74-year-old female with breast cancer C 50.411. Cancer staging. TECHNIQUE: Multiplanar, multisequence MRI of the brain obtained pre and post IV injection of gadolinium based co ntrast agent. FINDINGS: There is no obstructive hydrocephalus. There is no midline shift or any other evidence of mass effect . There is no extra-axial fluid collection. There are a few scattered tiny T2 hyperintensities in the cerebral white matter bilaterally, consistent with minimal chronic ischemic white matter changes due to microvascular atherosclerosis. The postcontrast images are somewhat degraded by motion. Small region of enhancement in the suprasylvian right lateral frontal lobe consistent with DVA (devel opmental venous anomaly). There is otherwise no major intra-axial signal abnormality, abnormal enhancement, mass, recent hemorrhage, or restricted diffusion. IMPRESSION: Essentially normal brain. No evidence of brain metastasis.
[2019-09-10] MEDS ORDERED: Magnevist 469MG/ML 20 ML VIAL ONE (16:40)
== END 2019-09-10 08:26 | disposition home or self-care (01) ==
LOC: MRI 08:25
PROVIDERS: ATTEND Internal Medicine Hematology & Oncology
DX: C50.411 Malignant neoplasm of upper-outer quadrant of right female breast (principal); C79.51 Secondary malignant neoplasm of bone
CPT/HCPCS: 70553; A9579

== ENCOUNTER 2020-05-19 07:41 | Outpatient (CLI) | payer MEDICARE ==
--- NOTE | 2020-05-19 09:31 | PET ---
EXAM: PET CT skull to mid thigh COMPARISON: 09/08/2019 HISTORY: Malignant neoplasm of the upper outer quadrant of the right female breast with secondary mal ignant neoplasm of the bone. TECHNIQUE: A PET/CT was performed from the skull to the mid thigh after administration of 10.9 millic uries of F-18 FDG. Evaluation was performed on a [employer] workstation. FINDINGS: NECK: No areas of hypermetabolic activity CHEST: No areas of hypermetabolic activity. The right axillary lymph nodes are still prominent but de monstrate decreased metabolic activity with max SUV value of 2.2. The previously seen subcentimeter pulmonary nodules have improved in size. Only 2 nodules are visible on today's examination. The large st measures 3 to 4 mm in size. Both of these nodules are along the major fissures. ABDOMEN/PELVIS: No areas of hypermetabolic activity SKELETON: There is a lytic lesion in the right humeral head consistent with a bony metastasis. This h as a max SUV value of 2.4. Hypermetabolic activity is seen surrounding the left femoral hardware with max SUV value of 3.0. The femur fracture was likely a pathologic fracture. There is a sclerotic lesion in the right femoral neck which is slightly more sclerotic than the prior examination and does not demonstrate hypermetabolic activity. There are sclerotic lesions in the anterior aspect of m ultiple vertebral bodies in the thoracic spine which are not hypermetabolic. All of these nonhypermetabolic sclerotic lesions are concerning for bony metastases. CT images used for attenuation correction show scattered diverticula in the colon. The spleen is enla rged. IMPRESSION: 1. Improving right axillary lymph nodes 2. Bony metastatic disease as above. 3. Improvement in scattered pulmonary subcentimeter nodules.
== END 2020-05-19 07:42 | disposition home or self-care (01) ==
LOC: PET 07:41
PROVIDERS: ATTEND Internal Medicine Hematology & Oncology
DX: C50.411 Malignant neoplasm of upper-outer quadrant of right female breast (principal); C79.51 Secondary malignant neoplasm of bone; R91.8 Other nonspecific abnormal finding of lung field
CPT/HCPCS: 78815; A9552

== ENCOUNTER 2021-03-16 | Outpatient (CLI) | payer MEDICARE | END 2021-03-16 10:52 | disposition home or self-care (01) | DX: C50.411 Malignant neoplasm of upper-outer quadrant of right female breast (principal); C79.51 Secondary malignant neoplasm of bone | CPT/HCPCS: 78815; A9552 ==

== ENCOUNTER 2021-09-05 09:30 | Outpatient (CLI) | payer MEDICARE | END 2021-09-05 09:31 | disposition home or self-care (01) | LOC: PET 09:30 | PROVIDERS: ATTEND Internal Medicine Hematology & Oncology | DX: C50.411 Malignant neoplasm of upper-outer quadrant of right female breast (principal); C79.51 Secondary malignant neoplasm of bone | CPT/HCPCS: 78815; A9552 ==

== ENCOUNTER 2021-09-19 10:00 | Day surgery (SDC) | payer MEDICARE ==
[2021-09-19] MEDS ORDERED: Sodium Chloride 0.9% 10 ML ONE ×2 (10:24)
[2021-09-19] MEDS ORDERED: Acetaminophen 500 MG TAB ONE (10:35)
[2021-09-19] MEDS ORDERED: diphenhydrAMINE 25 MG CAP ONE (10:35)
[2021-09-19 12:19] VITALS: TEMP 98.4
[2021-09-19 14:50] VITALS: BP 129/62
[2021-09-20] MEDS ORDERED: FLU VACC QS2021-22(65YR UP)/PF 240 MCG/0.7 ML SYRINGE IM ONE (11:45)
== END 2021-09-19 14:51 | disposition home or self-care (01) ==
LOC: ONC/OP 10:00
PROVIDERS: ATTEND Internal Medicine Hematology & Oncology
PROC: 30233N1 Transfusion of Nonautologous Red Blood Cells into Peripheral Vein, Percutaneous Approach (ICD-10-PCS; principal; 2021-09-19)
DX: D64.9 Anemia, unspecified (principal); D69.6 Thrombocytopenia, unspecified
CPT/HCPCS: 36430; 86850; 86900; 86901; J1642; P9016

== ENCOUNTER 2021-12-15 14:19 | Emergency (ER) | payer MEDICARE ==
[2021-12-15 15:01] LABS: Hemoglobin 7.2 g/dL (12.0-16.0); Mean Corpuscular HGB CONC 34.2 g/dL (32.0-36.0); Mean Corpuscular Hemoglobin 31.7 pg (27.0-31.0); Mean Corpuscular Volume 92.8 fL (78.0-98.0); Mean Platelet Volume 8.5 fL (7.4-10.4); Platelet Count 174 thou/uL (130-400); RBC Distribution Width 15.7 % (11.5-14.5); Red Blood Cell (RBC) Count 2.27 mill/uL (4.20-5.40); White Blood Cell (WBC) Count 5.7 thou/uL (4.8-10.8)
[2021-12-15 15:23] LABS: ALT (SGPT) 8 U/L (8-55); AST (SGOT) 15 U/L (5-34); Albumin 2.9 g/dL (3.4-4.8); Alkaline Phosphatase 88 U/L (40-110); Anion Gap 16 mmol/L (10-20); BUN (Urea Nitrogen) 10 mg/dL (9.8-20.1); Calc. Creatinine Clearance 0 mL/min (70-130); Calcium 7.6 mg/dL (7.8-10.44); Carbon Dioxide 21 mmol/L (23-31); Chloride 106 mmol/L (98-107); Globulin 2.8 g/dL (2.4-3.5); Glucose 113 mg/dL (83-110); Protein, Total 5.7 g/dL (5.8-8.1); Sodium 141 mmol/L (136-145)
[2021-12-15 15:28] LABS: Potassium 1.8 mmol/L (3.5-5.1)
[2021-12-15 15:31] LABS: Eosinophils 1 % (0-10); Lymphocytes 25 % (21-51); MDiff Complete? YES; Monocytes 4 % (0-10); Neutrophil 66 % (42-75); Ovalocytes SLIGHT = 2-5 cells (100X) (0-1/hpf); Platelet Morphology Comment Appears Adequate; Polychromasia SLIGHT = 2-3 cells (100X) (0-2/hpf); Reactive Lymphocytes 3 % (0-10)
[2021-12-15] MEDS ORDERED: Potassium Chloride 20 MEQ TAB ONE (15:45)
[2021-12-15] MEDS ORDERED: Potassium Chloride 20 MEQ/100 ML PREMIX BAG ONE (15:45)
== END 2021-12-15 19:28 | disposition home or self-care (01) ==
LOC: ERS 14:19
DX: D64.9 Anemia, unspecified (principal); E87.6 Hypokalemia; Z85.3 Personal history of malignant neoplasm of breast; I10 Essential (primary) hypertension; Z79.899 Other long term (current) drug therapy; C50.411 Malignant neoplasm of upper-outer quadrant of right female breast; C79.51 Secondary malignant neoplasm of bone; D70.8 Other neutropenia
CPT/HCPCS: 36430; 80053; 85025; 86850; 86900; 86901; 86920; 93005; 96365; 96366; 99285; P9016; 36415; 86300; J3480

== ENCOUNTER 2022-01-09 11:23 | Day surgery (SDC) | payer MEDICARE ==
[2022-01-09] MEDS ORDERED: diphenhydrAMINE 25 MG CAP ONE (12:33)
[2022-01-09] MEDS ORDERED: Acetaminophen 500 MG TAB ONE (12:33)
[2022-01-09 17:54] VITALS: BP 108/53; TEMP 97.9
== END 2022-01-09 18:04 | disposition home or self-care (01) ==
LOC: ONC/OP 11:23
PROVIDERS: ATTEND Internal Medicine Hematology & Oncology
PROC: 30233N1 Transfusion of Nonautologous Red Blood Cells into Peripheral Vein, Percutaneous Approach (ICD-10-PCS; principal; 2022-01-09)
DX: D64.9 Anemia, unspecified (principal); D69.6 Thrombocytopenia, unspecified; C50.411 Malignant neoplasm of upper-outer quadrant of right female breast; C79.51 Secondary malignant neoplasm of bone; D70.8 Other neutropenia
CPT/HCPCS: 36415; 36430; 80053; 86300; 86850; 86900; 86901; P9016

== ENCOUNTER 2022-02-19 13:15 | Outpatient (CLI) | payer MEDICARE | END 2022-02-19 13:16 | disposition home or self-care (01) | LOC: PET 13:15 | PROVIDERS: ATTEND Surgery | DX: C18.9 Malignant neoplasm of colon, unspecified (principal); C79.51 Secondary malignant neoplasm of bone; R16.1 Splenomegaly, not elsewhere classified | CPT/HCPCS: 78815; A9552 ==

== ENCOUNTER 2022-02-22 10:05 | Outpatient (CLI) | payer MEDICARE ==
[2022-02-22 12:27] LABS: Anion Gap 11 mmol/L (10-20); BUN (Urea Nitrogen) 8 mg/dL (9.8-20.1); Calc. Creatinine Clearance 0 mL/min (70-130); Calcium 7.7 mg/dL (7.8-10.44); Carbon Dioxide 26 mmol/L (23-31); Chloride 106 mmol/L (98-107); Estimated GFR 92; Glucose 74 mg/dL (83-110); Sodium 140 mmol/L (136-145)
[2022-02-22 12:34] LABS: Hemoglobin 5.7 g/dL (12.0-15.5); Mean Corpuscular HGB CONC 33.5 g/dL (32.0-36.0); Mean Corpuscular Volume 104.3 fl (81.6-98.3); Platelet Count 219 10x3/uL (150-450); RBC Distribution Width 17.1 % (11.5-14.5); Red Blood Cell (RBC) Count 1.63 10x6/uL (3.90-5.03); White Blood Cell (WBC) Count 4.3 10x3/uL (3.5-10.5)
[2022-02-22 13:00] LABS: MDiff Complete? YES; Manual Diff?? YES
[2022-02-22 13:05] LABS: Band 5 % (5-11); Eosinophils 2 % (0-10); Lymphocytes 27 % (21-51); Monocytes 7 % (0-10); Neutrophil 59 % (42-75)
[2022-02-22 13:06] LABS: Platelet Morphology Comment Appears Adequate
[2022-02-22 13:08] LABS: Anisocytosis SLIGHT = 6-15 cells (100X) (0-5/hpf); Elliptocytes SLIGHT = 2-5 cells (100X) (0-1/hpf); Hypochromia SLIGHT = 6-15 cells (100X) (0-5/hpf); Macrocytosis SLIGHT = 6-15 cells (100X) (0-5/hpf); Microcytosis SLIGHT = 6-15 cells (100X) (0-5/hpf); Tear Drops SLIGHT = 2-5 cells (100X) (0-1/hpf)
== END 2022-02-22 10:06 | disposition home or self-care (01) ==
LOC: LABBT 10:05
PROVIDERS: ATTEND Surgery
DX: Z01.818 Encounter for other preprocedural examination (principal); K63.89 Other specified diseases of intestine; Z20.822 Contact with and (suspected) exposure to COVID-19
CPT/HCPCS: 80048; 85025; 87811; 93005; 93010

== ENCOUNTER 2022-02-22 10:15 | Inpatient (IN) | payer MEDICARE ==
[2022-02-23 15:28] VITALS: BMI 22.6
[2022-02-27] MEDS ORDERED: Midazolam HCl 2 mg/2 ml Vial ONE (09:16)
[2022-02-27] MEDS ORDERED: Fentanyl 100 MCG/2 ML VIAL ONE ×2 (09:16→15:50)
[2022-02-27] MEDS ORDERED: fentaNYL Citrate/PF 100 MCG/2 ML SYRINGE ONE (12:26)
[2022-02-27] MEDS ORDERED: Sodium Chloride 0.9% 100 ML ONE (12:28)
[2022-02-27] MEDS ORDERED: cefOXitin 2 GM VIAL ONE ×2 (12:28→14:40)
[2022-02-27] MEDS ORDERED: Bupivacaine HCl 0.5%/Epinephrine 1:200,000/PF 30 ml Vial ONE (12:44)
[2022-02-27] MEDS ORDERED: ePHEDrine 50 MG/ML VIAL ONE (12:44)
[2022-02-27] MEDS ORDERED: PROPOFOL 200 MG/20 ML VIAL ONE (12:44)
[2022-02-27] MEDS ORDERED: Phenylephrine 10 MG/ML VIAL ONE (12:44)
[2022-02-27] MEDS ORDERED: Dexamethasone 20 MG/5 ML VIAL ONE (12:44)
[2022-02-27] MEDS ORDERED: Ondansetron PF 4 MG/2 ML Vial ONE (12:44)
[2022-02-27] MEDS ORDERED: Lidocaine 1% PF 5 ML VIAL ONE (12:44)
[2022-02-27] MEDS ORDERED: Rocuronium Bromide 10 MG/ML (10ML VIAL) ONE (12:44)
[2022-02-27] MEDS ORDERED: Glycopyrrolate 0.2 MG/ML 5 ML SYRINGE ONE (12:44)
[2022-02-27] MEDS ORDERED: Promethazine HCl 25 MG/ML VIAL IVPB PRN (14:38)
[2022-02-27] MEDS ORDERED: Promethazine HCl 25 MG/ML VIAL IM PRN ×3 (14:38→15:33)
[2022-02-27] MEDS ORDERED: Ondansetron HCl/PF 4 MG/2 ML Vial IVP PRN (14:38)
[2022-02-27] MEDS ORDERED: SUGAMMADEX SODIUM 200 MG/2 ML VIAL ONE (14:50)
[2022-02-27] MEDS ORDERED: hydrALAZINE 20 MG/ML VIAL SLOW IVP PRN (15:12)
[2022-02-27] MEDS ORDERED: Ondansetron PF 4 MG/2 ML Vial IVP PRN ×2 (15:12→15:33)
[2022-02-27 15:23] LABS: Hemoglobin 8.3 g/dL (12.0-16.0)
[2022-02-27] MEDS ORDERED: diphenhydrAMINE 25 MG CAP PO PRN (15:33)
[2022-02-27] MEDS ORDERED: Zolpidem Tartrate 5 MG TAB PO PRN (15:33)
[2022-02-27] MEDS ORDERED: diphenhydrAMINE 50 MG/ML VIAL IVP PRN (15:33)
[2022-02-27] MEDS ORDERED: Naloxone HCl 0.4 mg/ml Vial IV PRN (15:33)
[2022-02-27] MEDS ORDERED: diphenhydrAMINE 50 MG/ML VIAL IM PRN (15:33)
[2022-02-27] MEDS ORDERED: fentaNYL Citrate/PF 2,000 MCG in Sodium Chloride 0.9% 60 ML IV PRN (15:33)
[2022-02-27] MEDS ORDERED: Communication Order-Pharmacy FS SCH (15:45)
[2022-02-27] MEDS: D5 1/2 NS w/20 mEq KCL 1,000 ML IV SCH (21:30)
[2022-02-27] MEDS: Famotidine 20 MG TAB PO SCH (21:31)
[2022-02-27] MEDS: Famotidine/PF 20 mg/2ml Vial SLOW IVP SCH (21:31)
[2022-02-27] MEDS: Letrozole 2.5 MG TAB PO SCH (21:31)
[2022-02-28] MEDS: cefOXitin Sodium 1 GM in Sodium Chloride 0.9% 100 ML IVPB SCH ×2 (00:24→07:36)
[2022-02-28 07:01] LABS: #Lymphocytes 1.1 thou/uL (1.20-3.40); #Monocytes 0.2 thou/uL (0.11-0.59); #Neutrophils 8.3 thou/uL (1.40-6.50); %Basophils 0.1 % (0.0-1.0); %Eosinophils 0.4 % (0.0-10.0); %Lymphocytes 11.2 % (21.0-51.0); %Monocytes 1.9 % (0.0-10.0); %Neutrophils 86.4 % (42.0-75.0); Anisocytosis SLIGHT = 6-15 cells (100X) (0-5/hpf); Hemoglobin 9.3 g/dL (12.0-16.0); MDiff Complete? YES; Macrocytosis SLIGHT = 6-15 cells (100X) (0-5/hpf); Mean Corpuscular HGB CONC 32.8 g/dL (32.0-36.0); Mean Corpuscular Hemoglobin 31.5 pg (27.0-31.0); Mean Corpuscular Volume 96.2 fL (78.0-98.0); Mean Platelet Volume 10.5 fL (7.4-10.4); Platelet Count 118 thou/uL (130-400); Platelet Morphology Comment Appears Decreased; RBC Distribution Width 23.1 % (11.5-14.5); Red Blood Cell (RBC) Count 2.94 mill/uL (4.20-5.40); White Blood Cell (WBC) Count 9.6 thou/uL (4.8-10.8)
[2022-02-28 07:06] LABS: Anion Gap 13 mmol/L (10-20); BUN (Urea Nitrogen) Less than 4 mg/dL (9.8-20.1); Calc. Creatinine Clearance 63 mL/min (70-130); Calcium 7.3 mg/dL (7.8-10.44); Carbon Dioxide 22 mmol/L (23-31); Chloride 109 mmol/L (98-107); Estimated GFR 80; Glucose 266 mg/dL (83-110); Sodium 141 mmol/L (136-145)
[2022-02-28 07:11] LABS: Potassium 2.6 mmol/L (3.5-5.1)
[2022-02-28] MEDS ORDERED: HumaLOG 300 UNITS/3 ML VIAL SC PRN (07:33)
[2022-02-28] MEDS ORDERED: Dextrose 5% in Water 1,000 ML IV PRN (07:33)
[2022-02-28] MEDS ORDERED: Dextrose 50% Abboject 50 ML SYRINGE SLOW IVP PRN (07:33)
[2022-02-28] MEDS ORDERED: Calcium Gluc 4.6 MEQ/10 ML (100 MG/ML) SLOW IVP SCH (07:35)
[2022-02-28] MEDS: D5 1/2 NS w/20 mEq KCL 1,000 ML IV SCH (07:37)
[2022-02-28] MEDS ORDERED: Potassium Chloride 40 MEQ in Premix Bag 1 BAG IVPB SCH (09:00)
[2022-02-28] MEDS: Sodium Chloride 0.9% 1,000 ML IV SCH (09:12)
[2022-02-28] MEDS: Amlodipine 5 MG TAB PO SCH (09:31)
[2022-02-28] MEDS: Famotidine 20 MG TAB PO SCH ×2 (09:34→20:40)
[2022-02-28] MEDS: Lisinopril 10 MG TAB PO SCH (09:34)
[2022-02-28] MEDS: Enoxaparin Sodium 40 MG/0.4 ML SYRINGE SC SCH (09:36)
[2022-02-28] MEDS: Famotidine/PF 20 mg/2ml Vial SLOW IVP SCH ×2 (12:52→20:49)
[2022-02-28] MEDS: Letrozole 2.5 MG TAB PO SCH (20:40)
[2022-03-01] MEDS: Sodium Chloride 0.9% 1,000 ML IV SCH ×2 (01:39→08:32)
[2022-03-01 08:11] LABS: Anion Gap 11 mmol/L (10-20); BUN (Urea Nitrogen) 4 mg/dL (9.8-20.1); Calc. Creatinine Clearance 82 mL/min (70-130); Calcium 7.5 mg/dL (7.8-10.44); Carbon Dioxide 24 mmol/L (23-31); Chloride 109 mmol/L (98-107); Estimated GFR 94; Glucose 79 mg/dL (83-110); Potassium 3.5 mmol/L (3.5-5.1); Sodium 140 mmol/L (136-145)
[2022-03-01] MEDS: Enoxaparin Sodium 40 MG/0.4 ML SYRINGE SC SCH (08:28)
[2022-03-01] MEDS: Famotidine 20 MG TAB PO SCH ×2 (08:28→20:14)
[2022-03-01] MEDS: Amlodipine 5 MG TAB PO SCH (08:28)
[2022-03-01] MEDS: Lisinopril 10 MG TAB PO SCH (08:28)
[2022-03-01] MEDS: Famotidine/PF 20 mg/2ml Vial SLOW IVP SCH ×2 (08:30→19:58)
[2022-03-01] MEDS ORDERED: Furosemide 20 MG/2 ML VIAL SLOW IVP SCH (09:00)
[2022-03-01] MEDS ORDERED: Prevnar 13-Val Conj/PF 0.5 ML SYRINGE IM ONE (14:00)
[2022-03-01] MEDS: Letrozole 2.5 MG TAB PO SCH (20:15)
[2022-03-02] MEDS: Amlodipine 5 MG TAB PO SCH (09:04)
[2022-03-02] MEDS: Lisinopril 10 MG TAB PO SCH (09:05)
[2022-03-02] MEDS: Enoxaparin Sodium 40 MG/0.4 ML SYRINGE SC SCH (09:05)
[2022-03-02] MEDS: Famotidine/PF 20 mg/2ml Vial SLOW IVP SCH ×2 (09:05→21:00)
[2022-03-02] MEDS: Famotidine 20 MG TAB PO SCH ×2 (09:05→21:00)
[2022-03-02] MEDS ORDERED: HYDROcodone/Acetaminophen 5/325 mg Tablet PO PRN ×3 (10:43→11:16)
[2022-03-02] MEDS ORDERED: Fentanyl 100 MCG/2 ML VIAL SLOW IVP PRN (11:15)
[2022-03-02] MEDS ORDERED: Mening Vac A,C,Y,W-135 Dip/PF (MENVEO) IM ONE (14:00)
[2022-03-02] MEDS: traMADol HCl 50 MG TAB PO PRN ×2 (14:46→21:00)
[2022-03-02] MEDS: Letrozole 2.5 MG TAB PO SCH (21:00)
[2022-03-02] MEDS: Acetaminophen 325 MG TAB PO PRN (22:59)
[2022-03-03] MEDS: Amlodipine 5 MG TAB PO SCH (08:44)
[2022-03-03] MEDS: Famotidine 20 MG TAB PO SCH (08:44)
[2022-03-03] MEDS: Acetaminophen 325 MG TAB PO PRN (08:44)
[2022-03-03] MEDS: Lisinopril 10 MG TAB PO SCH (08:45)
[2022-03-03] MEDS: Enoxaparin Sodium 40 MG/0.4 ML SYRINGE SC SCH (08:45)
[2022-03-03] MEDS: Famotidine/PF 20 mg/2ml Vial SLOW IVP SCH (08:45)
[2022-03-03] MEDS ORDERED: Calcium Carbonate 500 MG TAB PO SCH (09:00)
[2022-03-03] MEDS ORDERED: PALBOCICLIB 100 MG PO SCH (09:00)
[2022-03-03] MEDS ORDERED: Magnesium Oxide 400 MG TAB PO SCH (09:00)
[2022-03-03 12:47] VITALS: BP 106/67; TEMP 97.4
[2022-03-03] MEDS ORDERED: Acetaminophen 500 MG TAB PO PRN (15:00)
[2022-03-03] MEDS ORDERED: Ascorbic Acid 500 mg Chewable Tablet PO SCH (17:00)
[2022-03-03] MEDS ORDERED: Ferrous Sulfate 325 MG TAB PO SCH (17:00)
[2022-03-04] MEDS ORDERED: Potassium Chloride 20 MEQ TAB PO SCH (08:00)
== END 2022-03-03 14:45 | disposition home or self-care (01) | DRG 330 ==
LOC: SURG A 02-27 05:48
PROVIDERS: ADMIT Specialist; ATTEND Surgery
PROC: 0DBG0ZZ Excision of Left Large Intestine, Open Approach (ICD-10-PCS; principal; 2022-02-27)
PROC: 0DB80ZZ Excision of Small Intestine, Open Approach (ICD-10-PCS; 2022-02-27)
PROC: 07TP0ZZ Resection of Spleen, Open Approach (ICD-10-PCS; 2022-02-27)
DX: C18.5 Malignant neoplasm of splenic flexure (principal); C79.51 Secondary malignant neoplasm of bone; Z20.822 Contact with and (suspected) exposure to COVID-19; Z23 Encounter for immunization; I10 Essential (primary) hypertension; E11.65 Type 2 diabetes mellitus with hyperglycemia; E87.6 Hypokalemia; Z79.84 Long term (current) use of oral hypoglycemic drugs; Z79.899 Other long term (current) drug therapy; Z98.890 Other specified postprocedural states; Z85.3 Personal history of malignant neoplasm of breast
CPT/HCPCS: 36415; 36416; 36430; 80048; 85014; 85018; 85025; 86850; 86900; 86901; 88305; 88307; 88309; 90471; 90670; 90734; A4649; G0009; J0610; J0694; J1100; J1650; J1815; J1940; J2250; J2370; J2405; J2704; J2710; J3010; J3480; J3490; J7050; P9016

== ENCOUNTER 2022-09-27 09:30 | Outpatient (CLI) | payer MEDICARE | END 2022-09-27 09:31 | disposition home or self-care (01) | LOC: PET 09:30 | PROVIDERS: ATTEND Internal Medicine Hematology & Oncology | DX: C79.51 Secondary malignant neoplasm of bone (principal); C50.411 Malignant neoplasm of upper-outer quadrant of right female breast | CPT/HCPCS: 78815; A9552 ==

== ENCOUNTER 2022-10-08 09:25 | Outpatient (CLI) | payer MEDICARE ==
[2022-10-08 11:07] LABS: #Basophils 0.1 10x3/uL (0.0-0.2); #Eosinphils 0.5 10x3/uL (0.0-0.5); #Monocytes 0.8 10x3/uL (0.0-1.1); #Neutrophils 2.9 10x3/uL (1.5-8.4); %Basophils 1.5 % (0.0-2.0); %Eosinophils 5.4 % (0.0-6.0); %Monocytes 9.1 % (0.0-10.0); %Neutrophils 34.4 % (40.0-75.0); Hemoglobin 10.9 g/dL (12.0-15.5); Mean Corpuscular HGB CONC 33.9 g/dL (32.0-36.0); Mean Corpuscular Hemoglobin 32.7 pg (27.0-33.0); Mean Corpuscular Volume 96.7 fl (81.6-98.3); Mean Platelet Volume 10.9 fl (7.4-10.4); Platelet Count 384 10x3/uL (150-450); RBC Distribution Width 14.4 % (11.5-14.5); Red Blood Cell (RBC) Count 3.33 10x6/uL (3.90-5.03); White Blood Cell (WBC) Count 8.5 10x3/uL (3.5-10.5)
[2022-10-08 11:31] LABS: Anion Gap 14 mmol/L (10-20); BUN (Urea Nitrogen) 9 mg/dL (9.8-20.1); Calc. Creatinine Clearance 0 mL/min (70-130); Calcium 9.7 mg/dL (7.8-10.44); Carbon Dioxide 26 mmol/L (23-31); Chloride 106 mmol/L (98-107); Estimated GFR 79; Glucose 179 mg/dL (83-110); Potassium 3.6 mmol/L (3.5-5.1); Sodium 142 mmol/L (136-145)
== END 2022-10-08 09:26 | disposition home or self-care (01) ==
LOC: LABBT 09:25
PROVIDERS: ATTEND Surgery
DX: Z01.818 Encounter for other preprocedural examination (principal); C18.9 Malignant neoplasm of colon, unspecified; C50.919 Malignant neoplasm of unspecified site of unspecified female breast
CPT/HCPCS: 80048; 85025; 93005; 93010

== ENCOUNTER 2022-10-25 07:55 | Day surgery (SDC) | payer MEDICARE ==
[2022-10-23 09:59] VITALS: BMI 26.6
[2022-10-25] MEDS ORDERED: Bupivacaine/Epinephrine 0.25% 30 ML VIAL ONE (11:10)
[2022-10-25] MEDS ORDERED: Lidocaine 2% PF 5 ML VIAL ONE (11:10)
[2022-10-25] MEDS ORDERED: Propofol 500 MG/50 ML VIAL ONE (11:12)
[2022-10-25] MEDS ORDERED: fentaNYL PF 100 MCG/2 ML SYRINGE ONE (11:12)
[2022-10-25] MEDS ORDERED: CEFAZOLIN 2 GM VIAL ONE (11:35)
[2022-10-25] MEDS ORDERED: Lidocaine 1% PF 5 ML VIAL ONE (11:35)
[2022-10-25] MEDS ORDERED: PROPOFOL 200 MG/20 ML VIAL ONE (11:35)
[2022-10-25] MEDS ORDERED: Ondansetron PF 4 MG/2 ML Vial ONE (11:35)
[2022-10-25] MEDS ORDERED: Sodium Chloride 0.9% 100 ML ONE (11:36)
== END 2022-10-25 14:13 | disposition home or self-care (01) ==
LOC: SDC 07:55
PROVIDERS: ATTEND Surgery
PROC: 0JH60WZ Insertion of Totally Implantable Vascular Access Device into Chest Subcutaneous Tissue and Fascia, Open Approach (ICD-10-PCS; principal; 2022-10-25)
PROC: 02HV33Z Insertion of Infusion Device into Superior Vena Cava, Percutaneous Approach (ICD-10-PCS; 2022-10-25)
PROC: B518ZZA Fluoroscopy of Superior Vena Cava, Guidance (ICD-10-PCS; 2022-10-25)
DX: C18.7 Malignant neoplasm of sigmoid colon (principal); C79.81 Secondary malignant neoplasm of breast; C78.7 Secondary malignant neoplasm of liver and intrahepatic bile duct; E11.9 Type 2 diabetes mellitus without complications; I10 Essential (primary) hypertension; Z79.811 Long term (current) use of aromatase inhibitors; Z79.899 Other long term (current) drug therapy; Z90.49 Acquired absence of other specified parts of digestive tract
CPT/HCPCS: 71045; C1788; J1642; J2001; J2405; J2704; J3490

== ENCOUNTER 2023-04-18 11:00 | Outpatient (CLI) | payer MEDICARE | END 2023-04-18 11:01 | disposition home or self-care (01) | LOC: PET 11:00 | PROVIDERS: ATTEND Internal Medicine Hematology & Oncology | DX: C18.2 Malignant neoplasm of ascending colon (principal); C50.411 Malignant neoplasm of upper-outer quadrant of right female breast; C79.51 Secondary malignant neoplasm of bone; K72.90 Hepatic failure, unspecified without coma | CPT/HCPCS: 78815; A9552 ==

== ENCOUNTER 2024-02-11 13:31 | Inpatient (IN) | payer MEDICARE ==
[~2024-02-11 13:31] MED LIST: Iopamidol-370 76% 500 ML MDV (1 ML CHARGE) ONE
[2024-02-11 15:03] LABS: Hematocrit 19.9 % (36.0-47.0); Hemoglobin 6.7 g/dL (12.0-16.0); Mean Corpuscular HGB CONC 33.7 g/dL (32.0-36.0); Mean Corpuscular Hemoglobin 29.4 pg (27.0-31.0); Mean Corpuscular Volume 87.3 fL (78.0-98.0); Mean Platelet Volume 12.6 fL (7.4-10.4); Platelet Count 198 10x3/uL (130-400); RBC Distribution Width 18.5 % (11.5-14.5); Red Blood Cell (RBC) Count 2.28 mill/uL (4.20-5.40)
[2024-02-11 15:13] LABS: ALT (SGPT) 14 U/L (8-55); AST (SGOT) 69 U/L (5-34); Albumin 1.7 g/dL (3.4-4.8); Alkaline Phosphatase 268 U/L (40-110); Anion Gap 18 mmol/L (10-20); BUN (Urea Nitrogen) 34 mg/dL (9.8-20.1); Bilirubin, Total 1.7 mg/dL (0.2-1.2); Calc. Creatinine Clearance 0 mL/min (70-130); Calcium 7.4 mg/dL (7.8-10.44); Carbon Dioxide 14 mmol/L (23-31); Chloride 110 mmol/L (98-107); Estimated GFR 43; Globulin 4.2 g/dL (2.4-3.5); Glucose 114 mg/dL (83-110); Lipase 9 U/L (8-78); Magnesium 2.1 mg/dL (1.6-2.6); Potassium 2.8 mmol/L (3.5-5.1); Protein, Total 5.9 g/dL (5.8-8.1); Sodium 139 mmol/L (136-145)
[2024-02-11 15:23] LABS: INR-International Normal Ratio 1.4; PTT 41.8 sec (22.9-36.1); Prothrombin Time 17.3 sec (12.0-14.7)
[2024-02-11 15:39] LABS: Band 3 % (5-11); Lymphocytes 6 % (21-51); Monocytes 2 % (0-10); Neutrophil 89 % (42-75); Plasma Cells 0 % (0-0); Total Cell Count 100
[2024-02-11 15:41] LABS: Platelet Adequacy Comment Appears Adequate; RBC Morphology Within Normal Limits
[2024-02-11 15:46] LABS: Actual Bicarbonate (HCO3v) 16.6 mEq/L (22-28); Analyzer IN Cardio ER; Base Excess -7.2 mEq/L (-2.0 to +3.0); Calcium, Ionized (venous) 0.97 mmol/L (1.16-1.32); Chloride (VBG) 108 mmol/L (98-106); Hematocrit-VBG 23 % (36.0-47.0); Hemoglobin (Hb) 7.7 g/dL (11.7-16.1); Potassium (VBG) 2.89 mmol/L (3.70-5.30); Sodium 139 mmol/L (133-146); pH (venous) 7.406 (7.32-7.43)
[2024-02-11] MEDS ORDERED: Cefepime 2 GM VIAL ONE (16:04)
[2024-02-11] MEDS ORDERED: Potassium Chloride 20 MEQ TAB ONE (16:04)
[2024-02-11] MEDS ORDERED: Aspirin 325 MG TAB ONE (16:04)
[2024-02-11] MEDS ORDERED: Sodium Chloride 0.9% 100 ML ONE (16:05)
[2024-02-11 16:52] LABS: Bilirubin Negative (Negative); Blood, Urine Trace (Negative); CAUTI Indications for Culture Pelvic or flank pain; Clarity Turbid (Clear); Glucose, Urine (Dipstick) Normal (Negative); Ketone, Urine Negative (Negative); Leukocyte 500 Leu/uL (Negative); Nitrite Negative (Negative); Protein, Urine (Dipstick) Negative (Neg-Trace); RBC/HPF 0-3 HPF (0-3); Specific Gravity, Urine 1.021 (1.002-1.036); Squamous Epithelial 0-3 HPF (0-3); Urobilinogen Normal mg/dL (Less than 2); WBC/HPF Greater than 50 HPF (0-3)
[2024-02-11 17:07] LABS: Bacteria/HPF 1+ HPF (None Seen)
[2024-02-11 17:09] LABS: Urine Culture Reflex Yes Yes
[2024-02-11 17:12] LABS: Influenza A by NAA Not Detected (NotDetected); Influenza B by NAA Not Detected (NotDetected); SARS-CoV-2 NAA Rapid Test Not Detected (NotDetected)
[2024-02-11] MEDS ORDERED: Glucagon 1 MG/ML KIT IM PRN (18:32)
[2024-02-11] MEDS ORDERED: Dextrose 50% Abboject 50 ML SYRINGE SLOW IVP PRN (18:32)
[2024-02-11] MEDS ORDERED: Dextrose 5% in Water 1,000 ML IV PRN (18:32)
[2024-02-11] MEDS ORDERED: Electrolyte Replacement Protocol 1 EACH FS PRN (18:34)
[2024-02-11] MEDS ORDERED: Electrolyte Replacement Protocol FS PRN (18:45)
[2024-02-11] MEDS: Vancomycin (BATCH) 1.75 GM in Premix 1 BAG IVPB SCH (19:41)
[2024-02-11] MEDS: Sodium Chloride 0.9% 1,000 ML IV SCH (19:41)
[2024-02-11 20:54] VITALS: BMI 28.4
[2024-02-11] MEDS: Potassium Chloride 20 MEQ in Premix 1 BAG IVPB SCH ×2 (21:56→23:52)
[2024-02-11] MEDS: Famotidine 20 MG TAB PO SCH (21:56)
[2024-02-11] MEDS: Sodium Bicarbonate 75 MEQ in Sodium Chloride 0.45% 1,000 ML IV SCH (21:56)
[2024-02-11 22:25] LABS: Lactic Acid 1.6 mmol/L (0.5-2.2)
[2024-02-11 22:28] LABS: Anion Gap 15 mmol/L (10-20); BUN (Urea Nitrogen) 27 mg/dL (9.8-20.1); Calc. Creatinine Clearance 50 mL/min (70-130); Calcium 7.6 mg/dL (7.8-10.44); Carbon Dioxide 14 mmol/L (23-31); Chloride 111 mmol/L (98-107); Estimated GFR 54; Glucose 188 mg/dL (83-110); Potassium 3.2 mmol/L (3.5-5.1); Sodium 137 mmol/L (136-145)
[2024-02-11 22:41] LABS: Troponin I 4.878 ng/mL (< 0.028)
[2024-02-12] MEDS: Furosemide 40 MG (4 mL) VIAL SLOW IVP SCH ×2 (00:44→09:30)
[2024-02-12 03:35] LABS: Anisocytosis MARKED = >30 cells HPF (0-5); Band 10 % (5-11); Burr Cells SLIGHT = 2-5 cells HPF (0-1); Lymphocytes 3 % (21-51); Macrocytosis MODERATE=16-30 cells HPF (0-5); Monocytes 1 % (0-10); Neutrophil 86 % (42-75); Platelet Adequacy Comment Platelets Normal; Polychromasia SLIGHT = 2-3 cells HPF (0-2); Target Cells MODERATE= 6-15 cells HPF (0-1)
[2024-02-12 03:41] LABS: Hematocrit 28.6 % (36.0-47.0); Hemoglobin 9.6 g/dL (12.0-16.0); Mean Corpuscular HGB CONC 33.6 g/dL (32.0-36.0); Mean Corpuscular Hemoglobin 28.7 pg (27.0-31.0); Mean Corpuscular Volume 85.4 fL (78.0-98.0); Mean Platelet Volume 12.6 fL (7.4-10.4); Platelet Count 224 10x3/uL (130-400); RBC Distribution Width 18.4 % (11.5-14.5); Red Blood Cell (RBC) Count 3.35 mill/uL (4.20-5.40)
[2024-02-12 03:44] LABS: A1c 99.325 g/dL; Hb (HGBA1c) 2442.6436 umol/L; Hemoglobin A1c 5.9 % (4.0-6.0); Vancomycin, Random 26.4 ug/mL (See Comment)
[2024-02-12 03:45] LABS: Anion Gap 15 mmol/L (10-20); BUN (Urea Nitrogen) 25 mg/dL (9.8-20.1); Calcium 7.7 mg/dL (7.8-10.44); Carbon Dioxide 15 mmol/L (23-31); Chloride 112 mmol/L (98-107); Glucose 211 mg/dL (83-110); Sodium 137 mmol/L (136-145)
[2024-02-12 03:50] LABS: Troponin I 4.284 ng/mL (< 0.028)
[2024-02-12 03:51] LABS: Potassium 4.9 mmol/L (3.5-5.1)
[2024-02-12] MEDS ORDERED: Ipratropium/Albuterol 3 ML NEB NEB PRN (04:05)
[2024-02-12 04:07] LABS: Calc. Creatinine Clearance 52 mL/min (70-130); Estimated GFR 56
[2024-02-12 04:08] LABS: CRP,High Sensitivity (Inhouse) 23.81 mg/dL (< or = 0.5)
[2024-02-12] MEDS: Cefepime 1 GM in Sodium Chloride 0.9% 100 ML IVPB SCH ×2 (04:09→14:55)
[2024-02-12] MEDS: Potassium Chloride 20 MEQ in Premix 1 BAG IVPB SCH (04:22)
[2024-02-12 04:32] LABS: Actual Bicarbonate (HCO3a) 18.5 mEq/L (22-28); Base Excess (BEa) -3.8 mEq/L (-2.0 to +3.0); Calcium, Ionized (arterial) 1.07 mmol/L (1.12-1.30); Carboxyhemoglobin (COHb) 0.3 gm% (0.0-3.0); Hematocrit-ABG 28 % (36.0-47.0); Hemoglobin (Hb) 9.6 g/dL (12.0-16.0); O2 Tension (PaO2), arterial 181.3 mmHg (> 70.0); Potassium - ABG Lab 3.57 mmol/L (3.70-5.30); pH, Arterial 7.492 (7.35-7.45)
[2024-02-12 04:34] LABS: ALV-art Gradient 215.625 mmHg (0-20); CO2 Tension 24.7 mmHg (35.0-45.0); Puncture Site RRA
[2024-02-12] MEDS: Albumin 25% 25 GM (100 mL) BOT IVPB SCH ×2 (05:03→11:00)
[2024-02-12] MEDS: NOREPINEPHRINE 8 MG/250 ML-D5W 250 ML IVPB SCH (05:55)
[2024-02-12] MEDS: Insulin Regular, Human 100 UNIT/ML 10 ML VIAL SC PRN (06:13)
[2024-02-12] MEDS: CO Q-10 CAPSULE 100 MG PO SCH (08:10)
[2024-02-12] MEDS: Calcium Carbonate 600 MG TAB PO SCH (08:20)
[2024-02-12] MEDS: Ferrous Sulfate 325 MG TAB PO SCH (08:20)
[2024-02-12] MEDS: Cyanocobalamin (Vitamin B-12) 1,000 MCG TAB PO SCH (08:20)
[2024-02-12] MEDS: Multivitamin W/ Minerals 1 TAB PO SCH (08:20)
[2024-02-12] MEDS: Enoxaparin 40 MG (0.4 mL) SYRINGE SC SCH (08:20)
[2024-02-12] MEDS: Magnesium 2 GM/50 ML(in water) 2 GM in Premix 1 BAG IVPB SCH (08:20)
[2024-02-12] MEDS ORDERED: ELDERBERRY FRUIT AND FLOWER PO SCH (09:00)
[2024-02-12] MEDS ORDERED: [UNRECOGNIZED DRUG - OTHER] PO SCH (09:00)
[2024-02-12] MEDS ORDERED: COD LIVER OIL PO SCH (09:00)
[2024-02-12] MEDS ORDERED: Non-Formulary Item 1 EACH (Garlic [Garlic] 1,000 MG Capsule) PO SCH (09:00)
[2024-02-12] MEDS: Albumin 25% 100 ML ONE (09:39)
[2024-02-12] MEDS ORDERED: Cefepime 2 GM in Sodium Chloride 0.9% 100 ML IVPB SCH (14:33)
[2024-02-12] MEDS ORDERED: Phenylephrine 40 MG in Sodium Chloride 0.9% 250 ML 250 ML IVPB SCH (19:15)
[2024-02-12] MEDS ORDERED: Vancomycin 1 GM in Premix 1 BAG IVPB SCH (20:00)
[2024-02-12] MEDS: Letrozole 2.5 MG TAB PO SCH (21:05)
[2024-02-12] MEDS: Famotidine 20 MG TAB PO SCH (21:05)
[2024-02-13 04:11] LABS: Hematocrit 23.4 % (36.0-47.0); Hemoglobin 7.8 g/dL (12.0-16.0); Mean Corpuscular HGB CONC 33.3 g/dL (32.0-36.0); Mean Corpuscular Hemoglobin 28.1 pg (27.0-31.0); Mean Corpuscular Volume 84.2 fL (78.0-98.0); Mean Platelet Volume 12.7 fL (7.4-10.4); Platelet Count 204 10x3/uL (130-400); RBC Distribution Width 19.1 % (11.5-14.5); Red Blood Cell (RBC) Count 2.78 mill/uL (4.20-5.40)
[2024-02-13 04:26] LABS: ALT (SGPT) 13 U/L (8-55); AST (SGOT) 51 U/L (5-34); Albumin 3.1 g/dL (3.4-4.8); Alkaline Phosphatase 209 U/L (40-110); Anion Gap 18 mmol/L (10-20); BUN (Urea Nitrogen) 18 mg/dL (9.8-20.1); Bilirubin, Total 2.9 mg/dL (0.2-1.2); Calc. Creatinine Clearance 58 mL/min (70-130); Calcium 8.7 mg/dL (7.8-10.44); Carbon Dioxide 19 mmol/L (23-31); Chloride 110 mmol/L (98-107); Estimated GFR 65; Globulin 3.6 g/dL (2.4-3.5); Glucose 161 mg/dL (83-110); Potassium 2.9 mmol/L (3.5-5.1); Protein, Total 6.7 g/dL (5.8-8.1); Sodium 144 mmol/L (136-145)
[2024-02-13] MEDS: Lorazepam 2 MG/ML VIAL SLOW IVP SCH (04:29)
[2024-02-13 06:13] LABS: Anisocytosis SLIGHT = 6-15 cells HPF (0-5); Band 1 % (5-11); Eosinophils 1 % (0-10); Hypochromia SLIGHT = 6-15 cells HPF (0-5); Large Platelets 3.5 % (0-5); Lymphocytes 17 % (21-51); Monocytes 4 % (0-10); Neutrophil 78 % (42-75); Platelet Adequacy Comment Platelets Normal; Polychromasia SLIGHT = 2-3 cells HPF (0-2); Smudge Cells 3.5 %; Target Cells SLIGHT = 2-5 cells HPF (0-1)
[2024-02-13] MEDS: Potassium Chloride 20 MEQ in Premix 1 BAG IVPB SCH ×2 (08:36→21:28)
[2024-02-13] MEDS: Furosemide 40 MG (4 mL) VIAL SLOW IVP SCH ×2 (09:32→14:25)
[2024-02-13] MEDS: Morphine 4 MG/ML VIAL ONE (14:12)
[2024-02-13] MEDS: Morphine 2 MG/ML VIAL SLOW IVP SCH (14:18)
[2024-02-13] MEDS: Potassium Chloride 20 MEQ TAB PO SCH (19:16)
[2024-02-13 21:16] LABS: Potassium 3.5 mmol/L (3.5-5.1)
[2024-02-14] MEDS: Furosemide 40 MG (4 mL) VIAL SLOW IVP SCH (05:00)
[2024-02-14 08:24] LABS: ALT (SGPT) 12 U/L (8-55); AST (SGOT) 42 U/L (5-34); Albumin 2.8 g/dL (3.4-4.8); Alkaline Phosphatase 180 U/L (40-110); Anion Gap 13 mmol/L (10-20); BUN (Urea Nitrogen) 20 mg/dL (9.8-20.1); Calc. Creatinine Clearance 62 mL/min (70-130); Calcium 9.1 mg/dL (7.8-10.44); Carbon Dioxide 22 mmol/L (23-31); Chloride 114 mmol/L (98-107); Estimated GFR 72; Glucose 157 mg/dL (83-110); Magnesium 1.8 mg/dL (1.6-2.6); Potassium 3.5 mmol/L (3.5-5.1); Protein, Total 6.8 g/dL (5.8-8.1); Sodium 145 mmol/L (136-145)
[2024-02-14 08:29] LABS: Hematocrit 24.4 % (36.0-47.0); Mean Corpuscular HGB CONC 32.8 g/dL (32.0-36.0); Mean Corpuscular Hemoglobin 28.3 pg (27.0-31.0); Mean Corpuscular Volume 86.2 fL (78.0-98.0); Mean Platelet Volume 12.8 fL (7.4-10.4); Platelet Count 202 10x3/uL (130-400); RBC Distribution Width 19.6 % (11.5-14.5); Red Blood Cell (RBC) Count 2.83 mill/uL (4.20-5.40)
[2024-02-14] MEDS: Magnesium 2 GM/50 ML(in water) 2 GM in Premix 1 BAG IVPB SCH (10:36)
[2024-02-14] MEDS: Potassium Chloride 20 MEQ in Premix 1 BAG IVPB SCH (10:37)
[2024-02-14 15:11] LABS: #Basophils 0.04 10x3/uL (0.0-0.2); %Basophils 0.2 % (0.0-1.0); %Eosinophils 1.4 % (0.0-10.0); %Lymphocytes 13.7 % (21.0-51.0); %Monocytes 5.6 % (0.0-10.0); %Neutrophils 78.2 % (42.0-75.0)
[2024-02-14 15:33] LABS: Eosinophils 1 % (0-10); Giant Platelets 4.7 % (0-5); Hypochromia SLIGHT = 6-15 cells HPF (0-5); Lymphocytes 6 % (21-51); Microcytosis SLIGHT = 6-15 cells HPF (0-5); Monocytes 3 % (0-10); Neutrophil 86 % (42-75); Platelet Adequacy Comment Platelets Normal; Polychromasia SLIGHT = 2-3 cells HPF (0-2); Schistocytes SLIGHT = 2-5 cells HPF (0-1); Smudge Cells 2.8 %; Target Cells MODERATE= 6-15 cells HPF (0-1)
[2024-02-15] MEDS: cefTRIAXone\\ROCEPHIN 2 GM in Sodium Chloride 0.9% 100 ML IVPB SCH (01:47)
[2024-02-15 08:12] LABS: #Basophils 0.04 10x3/uL (0.0-0.2); %Basophils 0.2 % (0.0-1.0); %Eosinophils 1.2 % (0.0-10.0); %Lymphocytes 10.7 % (21.0-51.0); %Monocytes 3.6 % (0.0-10.0); %Neutrophils 83.6 % (42.0-75.0); Hematocrit 25.3 % (36.0-47.0); Hemoglobin 8.2 g/dL (12.0-16.0); Mean Corpuscular HGB CONC 32.4 g/dL (32.0-36.0); Mean Corpuscular Hemoglobin 27.8 pg (27.0-31.0); Mean Corpuscular Volume 85.8 fL (78.0-98.0); Mean Platelet Volume 13.2 fL (7.4-10.4); Platelet Count 256 10x3/uL (130-400); RBC Distribution Width 19.8 % (11.5-14.5); Red Blood Cell (RBC) Count 2.95 mill/uL (4.20-5.40)
[2024-02-15 08:15] LABS: ALT (SGPT) 13 U/L (8-55); AST (SGOT) 41 U/L (5-34); Albumin 2.6 g/dL (3.4-4.8); Alkaline Phosphatase 189 U/L (40-110); Anion Gap 17 mmol/L (10-20); BUN (Urea Nitrogen) 23 mg/dL (9.8-20.1); Bilirubin, Total 2.4 mg/dL (0.2-1.2); Calc. Creatinine Clearance 55 mL/min (70-130); Calcium 9.4 mg/dL (7.8-10.44); Carbon Dioxide 21 mmol/L (23-31); Chloride 114 mmol/L (98-107); Estimated GFR 66; Globulin 4.2 g/dL (2.4-3.5); Glucose 166 mg/dL (83-110); Potassium 3.6 mmol/L (3.5-5.1); Protein, Total 6.8 g/dL (5.8-8.1); Sodium 148 mmol/L (136-145)
[2024-02-15] MEDS: Magnesium 2 GM/50 ML(in water) 2 GM in Premix 1 BAG IVPB SCH (09:42)
[2024-02-16 04:01] LABS: Hematocrit 22.8 % (36.0-47.0); Hemoglobin 7.5 g/dL (12.0-16.0); Mean Corpuscular HGB CONC 32.9 g/dL (32.0-36.0); Mean Corpuscular Hemoglobin 28.6 pg (27.0-31.0); Platelet Count 219 10x3/uL (130-400); RBC Distribution Width 19.9 % (11.5-14.5); Red Blood Cell (RBC) Count 2.62 mill/uL (4.20-5.40)
[2024-02-16 04:14] LABS: #Basophils Less than 0.03 10x3/uL (0.0-0.2); %Basophils 0.1 % (0.0-1.0); %Eosinophils 2.9 % (0.0-10.0); %Lymphocytes 20.2 % (21.0-51.0); %Monocytes 8.3 % (0.0-10.0)
[2024-02-16 04:20] LABS: ALT (SGPT) 13 U/L (8-55); AST (SGOT) 41 U/L (5-34); Albumin 2.4 g/dL (3.4-4.8); Alkaline Phosphatase 186 U/L (40-110); Anion Gap 11 mmol/L (10-20); BUN (Urea Nitrogen) 21 mg/dL (9.8-20.1); Bilirubin, Total 1.6 mg/dL (0.2-1.2); Calc. Creatinine Clearance 60 mL/min (70-130); Calcium 8.9 mg/dL (7.8-10.44); Carbon Dioxide 26 mmol/L (23-31); Chloride 110 mmol/L (98-107); Estimated GFR 74; Globulin 4.2 g/dL (2.4-3.5); Glucose 164 mg/dL (83-110); Potassium 2.9 mmol/L (3.5-5.1); Protein, Total 6.6 g/dL (5.8-8.1); Sodium 144 mmol/L (136-145)
[2024-02-16 04:28] LABS: Anisocytosis SLIGHT = 6-15 cells HPF (0-5); Band 6 % (5-11); Eosinophils 2 % (0-10); Hypochromia SLIGHT = 6-15 cells HPF (0-5); Lymphocytes 14 % (21-51); Monocytes 3 % (0-10); Neutrophil 74 % (42-75); Platelet Adequacy Comment Platelets Normal; Polychromasia SLIGHT = 2-3 cells HPF (0-2); Target Cells MODERATE= 6-15 cells HPF (0-1)
[2024-02-16] MEDS ORDERED: Potassium Chloride 40 MEQ in Sodium Chloride 0.9% 250 ML 250 ML IVPB SCH (06:45)
[2024-02-16] MEDS: Potassium Chloride 40 MEQ in Premix 1 BAG IVPB SCH (06:49)
[2024-02-16] MEDS: Morphine 2 MG/ML VIAL SLOW IVP PRN (12:31)
[2024-02-16] MEDS: Ondansetron PF 4 MG/2 ML Vial IVP PRN (12:31)
[2024-02-16] MEDS: Acetaminophen 325 MG TAB PO PRN (12:59)
[2024-02-16] MEDS: Acetaminophen 650 MG Suppository PR PRN (13:06)
[2024-02-16] MEDS: Lactated Ringer's 500 ML IV SCH (16:37)
[2024-02-16] MEDS: NOREPINEPHRINE 8 MG/250 ML-D5W 250 ML IVPB SCH (17:36)
[2024-02-16] MEDS: Lactated Ringer's 1,000 ML IV SCH (17:36)
[2024-02-16 18:26] LABS: Potassium 4.1 mmol/L (3.5-5.1)
[2024-02-17 04:13] LABS: Hematocrit 23.9 % (36.0-47.0); Hemoglobin 7.6 g/dL (12.0-16.0); Mean Corpuscular HGB CONC 31.8 g/dL (32.0-36.0); Mean Corpuscular Hemoglobin 28.1 pg (27.0-31.0); Mean Corpuscular Volume 88.5 fL (78.0-98.0); Mean Platelet Volume 13.1 fL (7.4-10.4); Platelet Count 197 10x3/uL (130-400); RBC Distribution Width 20.5 % (11.5-14.5)
[2024-02-17 04:33] LABS: ALT (SGPT) 30 U/L (8-55); AST (SGOT) 146 U/L (5-34); Albumin 2.3 g/dL (3.4-4.8); Alkaline Phosphatase 249 U/L (40-110); Anion Gap 12 mmol/L (10-20); BUN (Urea Nitrogen) 26 mg/dL (9.8-20.1); Bilirubin, Total 1.7 mg/dL (0.2-1.2); Calc. Creatinine Clearance 39 mL/min (70-130); Calcium 8.8 mg/dL (7.8-10.44); Carbon Dioxide 24 mmol/L (23-31); Chloride 115 mmol/L (98-107); Estimated GFR 47; Globulin 4.2 g/dL (2.4-3.5); Glucose 179 mg/dL (83-110); Potassium 4.4 mmol/L (3.5-5.1); Protein, Total 6.5 g/dL (5.8-8.1); Sodium 147 mmol/L (136-145)
[2024-02-17 04:56] LABS: Band 18 % (5-11); Hypochromia SLIGHT = 6-15 cells (100X) (0-5/hpf); Lymphocytes 4 % (21-51); Neutrophil 78 % (42-75); Nucleated RBC (Manual Ct) 1 % (0); Plasma Cells 0 % (0-0); Platelet Adequacy Comment Appears Adequate; Polychromasia SLIGHT = 2-3 cells (100X) (0-2/hpf); Target Cells SLIGHT = 2-5 cells (100X) (0-1/hpf); Total Cell Count 100
[2024-02-18 09:51] VITALS: BMI 25.6
[2024-02-19] MEDS ORDERED: Acetaminophen 650 MG Suppository PR PRN (19:38)
[2024-02-21 19:40] VITALS: BP 109/53; TEMP 98.1
== END 2024-02-21 20:05 | disposition hospice, inpatient (51) | DRG 871 ==
LOC: ERS 13:31 → CCU 16:53 → UNDOADMIN 16:53 → T4-B 02-18 14:57
PROVIDERS: ADMIT Internal Medicine; ATTEND Family Medicine
PROC: 30233N1 Transfusion of Nonautologous Red Blood Cells into Peripheral Vein, Percutaneous Approach (ICD-10-PCS; principal; 2024-02-11)
PROC: 3E03329 Introduction of Other Anti-infective into Peripheral Vein, Percutaneous Approach (ICD-10-PCS; 2024-02-11)
PROC: 5A09457 Assistance with Respiratory Ventilation, 24-96 Consecutive Hours, Continuous Positive Airway Pressure (ICD-10-PCS; 2024-02-11)
PROC: 4A033R1 Measurement of Arterial Saturation, Peripheral, Percutaneous Approach (ICD-10-PCS; 2024-02-12)
PROC: 30233J1 Transfusion of Nonautologous Serum Albumin into Peripheral Vein, Percutaneous Approach (ICD-10-PCS; 2024-02-12)
PROC: 3E033XZ Introduction of Vasopressor into Peripheral Vein, Percutaneous Approach (ICD-10-PCS; 2024-02-16)
DX: A41.51 Sepsis due to Escherichia coli [E. coli] (principal); I21.A1 Myocardial infarction type 2; J96.01 Acute respiratory failure with hypoxia; I50.43 Acute on chronic combined systolic (congestive) and diastolic (congestive) heart failure; N17.9 Acute kidney failure, unspecified; N30.00 Acute cystitis without hematuria; I13.0 Hypertensive heart and chronic kidney disease with heart failure and stage 1 through stage 4 chronic kidney disease, or unspecified chronic kidney disease; C18.9 Malignant neoplasm of colon, unspecified; Z66 Do not resuscitate; Z51.5 Encounter for palliative care; C50.919 Malignant neoplasm of unspecified site of unspecified female breast; R30.0 Dysuria; E87.6 Hypokalemia; G47.33 Obstructive sleep apnea (adult) (pediatric); I35.0 Nonrheumatic aortic (valve) stenosis; N18.9 Chronic kidney disease, unspecified; E11.22 Type 2 diabetes mellitus with diabetic chronic kidney disease; D63.1 Anemia in chronic kidney disease; R65.20 Severe sepsis without septic shock; I95.9 Hypotension, unspecified; Z79.899 Other long term (current) drug therapy; Z92.21 Personal history of antineoplastic chemotherapy; Z98.890 Other specified postprocedural states
CPT/HCPCS: 36415; 36416; 36430; 36600; 71045; 71275; 80048; 80053; 80202; 81001; 82805; 83036; 83605; 83690; 83735; 83880; 84145; 84443; 84484; 85025; 85610; 85730; 86141; 86850; 86900; 86901; 87040; 87077; 87086; 87149; 87186; 93005; 93306; 94660; 94760; J0692; J0696; J1650; J1815; J1940; J2060; J2270; J2272; J2405; J3370; J3475; J3480; J3490; J7050; J7120; P9016; P9047; Q9967